=== PATIENT | female | born 1960 | race Caucasian/White ===

== ENCOUNTER → 2016-09-23 | Outpatient (CLI) | payer OTHER ==
--- NOTE | 2016-09-23 12:28 | MG ---
HISTORY: SCREENING Comparison: 09/12/2015, 04/29/2014 FINDINGS: Bilateral CC and MLO projections of the right and left breast were obtained. Scattered fibroglandul ar tissue is seen to be present. Stable asymmetric tissue is seen in the lateral left breast, hourly associate ior depth. No significant architectural distortion, mass or clustered microcalcifications can be obs erved to suggest malignancy. No skin thickening or nipple retraction is appreciated. No pathologi katelyn lymphadenopathy can be identified. IMPRESSION: NO RADIOGRAPHIC EVIDENCE OF MALIGNANCY. ACR CATEGORY I - NEGATIVE EXAM. FOLLOW-UP EXAM 1 YEAR. Diagnostic CAD was utilized and reviewed. * 0 (ZERO) - ASSESSMENT INCOMPLETE; ADDITIONAL IMAGING IS NEEDED. * 1/ (ONE) - NEGATIVE. * 2/II (TWO) - BENIGN FINDINGS. * 3/III (THREE) - PROBABLY BENIGN FINDING; SHORT INTERVAL FOLLOW-UP SUGGESTED. * 4/IV (FOUR) - SUSPICIOUS ABNORMALITY; BIOPSY SHOULD BE CONSIDERED. * 5/V - HIGHLY SUSPICIOUS OF MALIGNANCY; BIOPSY SHOULD BE PERFORMED. A NEGATIVE X-RAY REPORT SHOULD NOT DELAY BIOPSY IF A DOMINANT OR CLINICALLY SUSPICIOUS MASS IS PRESENT; 4 TO 8 PERCENT OF CANCERS ARE NOT IDENTIFIED BY X-RAY. A NEG ATIVE REPORT MAY REINFORCE THE CLINICAL IMPRESSION. ADENOSIS AND DENSE BREASTS MAY OBSCURE AN UNDER LYING NEOPLASM. Reported By:
== END ==
LOC: RAD 09:04
PROVIDERS: ATTEND Specialist
DX: Z12.31 Encounter for screening mammogram for malignant neoplasm of breast (principal)
CPT/HCPCS: 77067

== ENCOUNTER 2017-01-08 11:00 | Emergency (ER) | payer OTHER ==
[2017-01-08] MEDS ORDERED: PEPCID 20 MG IV PREMIX* 20 MG/50 ML BAG IV ONE (12:16)
[2017-01-08] MEDS ORDERED: ASPIRIN 81 MG CHEWTAB ONE (12:17)
[2017-01-08 12:53] VITALS: BMI 28.0
--- NOTE | 2017-01-08 13:52 | DR.CP ---
HPI - Time Seen Time seen: 15:10 <OXANA FOX - Last Filed: 01/08/17 15:33> - HPI Comment HPI Comment: SUDDEN ONSET OF INTERMITTENT SOB AT 08:30 AM TODAY RADIATING TO RT SHOULDER AND NOW LT SHOULDER. PAIN SHARP. SLIGHT SOB AND WEAKNESS ASSOCIATED WITH PAIN. NO PREVIOUS EPISODE. DENIES URI SYMTOMS OR REFLUX SYMTOMS. - Complaint Chief Complaint Doctor Comments: CHEST PAIN Chief Complaint:: chest pain starting approx 0830 this am radiating around chest to right arm and around to left. - Reviewed Nurses Notes Review: Yes - Source History Provided: Patient - Mode of Arrival Mode of Arrival: Ambulatory - Timing Onset of Chief Complaint: 01/08/17 Came on: Suddenly - Duration Duration: Intermittent Duration: Hours - Location Location of Chest Pain: Chest (SUBSTERNAL) Chest Pain Radiation Location: Left Arm, Right Arm - Context Onset: At rest Cardiac Risk Factors: None PE Risk Factors: None History of: None Prehospital Care: None - Quality Quality: Pressure like, Heavy - Severity Severity: Moderate - Modifying Factors Worsens: Nothing Impoves: Nothing - Associated Signs and Symptoms Associated Signs and Symptoms: Shortness of Breath <DAVID CHENEY - Last Filed: 01/09/17 04:18> PMH - PMH Past Medical History: No Past Surgical History: Yes Surgical History: Hysterectomy Past Surgical History Comment: neck surgery - Family History History of Family Medical Conditions: No - Social History Does patient currently use any type of tobacco product: No Have you used tobacco products in the last 12 months: No Type of Tobacco Use: None Does any household member use tobacco: No Alcohol Use: None Do you use any recreational Drugs:: No Lives With: Family Lives Where: Home - infectious screening In the last 2 months have you had wt loss of >10#?: NO Have you had fever, night sweats or hemotysis?: No Have you traveled outside the country in the last 6 months?: No Isolation: Standard <DAVID CHENEY - Last Filed: 01/09/17 04:18> ROS - Review of Systems Constitutional: No Symptoms Reported Eyes: No Symptoms Reported ENTM: No Symptoms Reported. negative: Ear Pain, Nose Discharge, Nose Congestion , Throat Pain Respiratoy: Short of Breath Cardiovascular: Chest Pain Gastrointestinal/Abdominal: No Symptoms Reported Genitourinary: No Symptoms Reported Musculoskeletal: No Symptoms Reported, Chest wall Integumentary: No Symptoms Reported Hematologic/Lymphatic: No Symptoms Reported Endocrine: No Symptoms Reported All Other Systems: Reviewed and Negative <SAM CHENEYVIKA - Last Filed: 01/09/17 04:18> PE - General Limitations: No Limitations General Appearance: Alert - Head Head Exam: Normal Inspection - Eyes Eye exam: Normal Appearance - ENT ENT Exam: Normal External Ear Exam - Chest Chest Inspection: Symmetric Chest Wall Rise - Respiratory Respiratory Exam: Normal Lung Sounds Bilat Respiratory Exam: Bilateral Clear to Auscultation - Cardiovascular Cardiovascular Exam: Regular Rate, Normal Rhythm, Normal Heart Sounds Pulse: Normal, Radial, Femoral Edema: Normal - Abdominal Exam Abdominal Exam: Normal Bowel Sounds, Soft. negative: Tenderness - Extremities Extremities Exam: Normal Inspection - Back Back Exam: Normal Inspection - Neurologic Neurological Exam: Alert, Oriented X3, CN II-XII Intact - Psychiatric Psychiatric Exam: Normal Affect, Normal Mood - Skin Skin Exam: Normal Color <SAM CHENEYVIKA - Last Filed: 01/09/17 04:18> - Vitals Vitals: Temperature 98.9 F Pulse Rate [Left] 71 Pulse Rate 87 Respiratory Rate 12 Blood Pressure [Left Arm] 126/70 Blood Pressure 167/94 O2 Sat by Pulse Oximetry 99 MDM - Additional Information Additional Information Obtained From: Family - Differential Diagnosis Differential Diagnosis: Cholelithasis, Costochondritis, Esophageal Reflux/Spasm , Gastritis, Myocardial Infarction, Pericarditis, Pancreatitis, Pneumonia, Pneumothorax, Pulmonary Embolus <SHRAVANDAVID - Last Filed: 01/09/17 04:18> Course - Treatment Treatment: SEE ORDERS. ASPIRIN AND PEPCID IN ED. - Consultation Consultation Comments: CARDIOLOGY CONSULT VIA TELE MED IN ED TODAY CONSULT NOTE REVIEWED.. DR. ZALDIVAR WILL ADMIT PATIENT. - Education/Counseling Education/Counseling: Patient, Family, Education Educated On: Treatment, Diagnosis, Needs for Follow Up <SHRAVANDAVID - Last Filed: 01/09/17 04:18> ROR - Labs Reviewed Result Diagrams: 01/08/17 11:45 01/08/17 11:45 <OXANA FOX - Last Filed: 01/08/17 15:33> - Labs Reviewed Laboratory Results Reviewed?: Yes Result Diagrams: 01/08/17 11:45 01/08/17 11:45 - XRAY XRAY Interpreted by: Radiologist XRAY Findings: REPORT DISCUSS NADINE PATIENT. - EKG Rhythm: NSR (EKG NOTED.) <DAVID CHENEY - Last Filed: 01/09/17 04:18> - Labs Reviewed Laboratory: WBC 10.4 X10^3/uL (3.6-10.0) H 01/08/17 11:45 RBC 4.53 X10^6/uL (3.5-5.4) 01/08/17 11:45 Hgb 14.9 g/dL (12.0-16.0) 01/08/17 11:45 Hct 42.0 % (36.0-47.0) 01/08/17 11:45 MCV 92.8 fL (80.0-100.0) 01/08/17 11:45 MCH 32.8 pg (27.0-34.0) 01/08/17 11:45 MCHC 35.4 g/dL (33.0-35.0) H 01/08/17 11:45 RDW 12.6 % (11.6-16.5) 01/08/17 11:45 Plt Count 288 X10^3/uL (150.0-450.0) 01/08/17 11:45 MPV 8.0 fL (7.4-11.0) 01/08/17 11:45 Neut % 67.2 % (42.0-75.0) 01/08/17 11:45 Lymph % 24.7 % (21.0-51.0) 01/08/17 11:45 [place] % 7.3 % (0.0-13.0) 01/08/17 11:45 Eos % 0.3 % (0.9-2.9) L 01/08/17 11:45 Baso % 0.5 % (0.2-1.0) 01/08/17 11:45 Neut # 7.0 x10^3/uL (2.2-4.8) H 01/08/17 11:45 Lymph # 2.6 X10^3/uL (1.3-2.9) 01/08/17 11:45 [place] # 0.8 x10^3/uL (0.3-0.8) 01/08/17 11:45 Eos # 0.0 x10^3/uL (0.0-0.2) 01/08/17 11:45 Baso # 0.1 X10^3/uL (0.0-0.1) 01/08/17 11:45 Absolute Nucleated RBC 0.0 /100WBC 01/08/17 11:45 INR Target Range - 01/08/17 11:45 INR 0.98 (0.8-1.3) 01/08/17 11:45 PTT 28.2 SECONDS (22.9-36.5) 01/08/17 11:45 PTT Comment - 01/08/17 11:45 D-Dimer 187 ng/mL (0-400) 01/08/17 11:45 Sodium 140 mmol/L (136-145) 01/08/17 11:45 Corrected Sodium TNP 01/08/17 11:45 Potassium 3.7 mmol/L (3.5-5.1) 01/08/17 11:45 Chloride 104 mmol/L (98-107) 01/08/17 11:45 Carbon Dioxide 28.5 mmol/L (21-32) 01/08/17 11:45 BUN 9 mg/dL (7-18) 01/08/17 11:45 Creatinine 0.80 mg/dL (0.55-1.02) 01/08/17 11:45 Est GFR (MDRD) Af Amer > 60 (>60) 01/08/17 11:45 Est GFR (MDRD) Non-Af > 60 (>60) 01/08/17 11:45 Glucose 104 mg/dL (65-99) H 01/08/17 11:45 Calcium 8.7 mg/dL (8.5-10.1) 01/08/17 11:45 Corrected Calcium TNP 01/08/17 11:45 Magnesium 1.9 mg/dL (1.7-2.9) 01/08/17 11:45 Total Bilirubin 0.30 mg/dL (0.2-1.0) 01/08/17 11:45 AST 18 Units/L (15-37) 01/08/17 11:45 ALT 23 Units/L (12-78) 01/08/17 11:45 Alkaline Phosphatase 50 Units/L (46-116) 01/08/17 11:45 Creatine Kinase 68 Units/L (26-192) 01/08/17 11:45 CK-MB (CK-2) 0.9 ng/mL (0-4.0) 01/08/17 11:45 CK/CKMB % Calc 1.3 % (<4) 01/08/17 11:45 Troponin I 0.00 ng/mL (0-1.5) 01/08/17 11:45 Total Protein 6.9 g/dL (6.4-8.2) 01/08/17 11:45 Albumin 3.5 g/dL (3.4-5.0) 01/08/17 11:45 Globulin 3.4 g/dL (2.5-4.5) 01/08/17 11:45 Albumin/Globulin Ratio 1.0 Ratio (1.1-2.1) L 01/08/17 11:45 Triglycerides 244 mg/dL (0-150) H 01/08/17 11:45 Cholesterol 188 mg/dL (0-200) 01/08/17 11:45 LDL Cholesterol, Calc 94 mg/dL (0-100) 01/08/17 11:45 HDL Cholesterol 45 mg/dL (40-60) 01/08/17 11:45 Cholesterol/HDL Ratio 4.2 (0.0-5.0) 01/08/17 11:45 H. pylori IgG Antibody Negative (NEGATIVE) 01/08/17 11:45 <OXANA FOX - Last Filed: 01/08/17 15:33> <DAVID CHENEY - Last Filed: 01/09/17 04:18> - Diagnosis Discharge Problem: Chest pain Qualifiers: Chest pain type: precordial pain Qualified Code(s): R07.2 - Precordial pain - Discharge Plan Disposition: 01 HOME, SELF-CARE Condition: Stable Telecardiology Consult - Consultation for Day of: Date: 01/08/17 - Chief Complaint Chief Complaint: Chest Pain - History of Present Illness History of Present Illness: 56 year old female with a family history of CAD otherwise no history of HTN, DM presents with an episode of sharp lower sternal aching sensation that lasted for several hours without any associated diaphoresis or SOB. ECG showed poor R wave progression. Initial cardiac enzymes were negative. Second set of cardiac enzymes are pending at this time. Patient denies any symptoms of PND, syncope, or palpitations. She has an administrative job. - Past Surgical History Surgical History: Hysterectomy - Family History Family Medical History: Coronary Artery Disease - Social History Does patient currently use any type of tobacco product: No Have you used tobacco products in the last 12 months: No Type of Tobacco Use: None Does any household member use tobacco: No Alcohol Use: None - Physical Exam Respiratory Rate: 12 O2 Sat by Pulse Oximetry: 99 - Medical Decision Making Reason for Consult: Chest Pain Labs reviewed: Yes Radiology Reviewed: No - Plan Plan: Second set of cardiac enzymes if negative patient is to undergo Treadmill [facility] ST tomorrow morning and follow up with power brake rebuilder. <OXANA FOX - Last Filed: 01/08/17 15:33> <DAVID CHENEY - Last Filed: 01/09/17 04:18> - Allergies Allergies/Adverse Reactions: Allergies Allergy/AdvReac Type Severity Reaction Status Date / Time codeine AdvReac Verified 01/08/17 12:52 - Medications Home Medications: Aspirin EC [ASPIRIN EC 81 MG *] 81 mg PO DAILY 01/08/17 [History Confirmed 01/08] Calcium Carbonate [Oyster Shell Calcium 500] 500 mg PO DAILY 01/08/17 [History Confirmed 01/08/17] Clindamycin HCl 300 mg PO Q6H 01/08/17 [History Confirmed 01/08/17] Cyanocobalamin (Vitamin B-12) [B-12] 500 mcg PO DAILY 01/08/17 [History Confirmed 01/08/17] Estradiol [Estrace] 2 mg PO DAILY 01/08/17 [History Confirmed 01/08/17]
[2017-01-08 14:17] LABS: ASPARTATE AMINO TRANSFERASE 18 Units/L (15-37); BLOOD UREA NITROGEN 9 mg/dL (7-18); CALCIUM 8.7 mg/dL (8.5-10.1); CARBON DIOXIDE 28.5 mmol/L (21-32); CHLORIDE 104 mmol/L (98-107); GLUCOSE 104 mg/dL (65-99); SODIUM 140 mmol/L (136-145); eGFR BLACK RACES > 60 (>60); eGFR NON BLACK RACES > 60 (>60)
[2017-01-08 14:18] LABS: ALANINE AMINOTRANSFERASE 23 Units/L (12-78); ALBUMIN 3.5 g/dL (3.4-5.0); ALKALINE PHOSPHATASE 50 Units/L (46-116); MAGNESIUM 1.9 mg/dL (1.7-2.9); TOTAL PROTEIN 6.9 g/dL (6.4-8.2)
[2017-01-08 14:29] LABS: CHOL/HDL RATIO 4.2 (0.0-5.0)
[2017-01-08 14:38] LABS: BASOPHILS # (AUTO) 0.1 X10^3/uL (0.0-0.1); BASOPHILS % (AUTO) 0.5 % (0.2-1.0); EOSINOPHILS % (AUTO) 0.3 % (0.9-2.9); HEMOGLOBIN 14.9 g/dL (12.0-16.0); LYMPHOCYTES # (AUTO) 2.6 X10^3/uL (1.3-2.9); LYMPHOCYTES % (AUTO) 24.7 % (21.0-51.0); MEAN CORPUSCULAR HEMOGLOBIN 32.8 pg (27.0-34.0); MEAN CORPUSCULAR HGB CONC 35.4 g/dL (33.0-35.0); MEAN CORPUSCULAR VOLUME 92.8 fL (80.0-100.0); MONOCYTES # (AUTO) 0.8 x10^3/uL (0.3-0.8); MONOCYTES % (AUTO) 7.3 % (0.0-13.0); NEUTROPHILS % (AUTO) 67.2 % (42.0-75.0); PLATELET COUNT 288 X10^3/uL (150.0-450.0); RED BLOOD COUNT 4.53 X10^6/uL (3.5-5.4); RED CELL DISTRIBUTION WIDTH 12.6 % (11.6-16.5); WHITE BLOOD COUNT 10.4 X10^3/uL (3.6-10.0)
[2017-01-08 14:56] LABS: CKMB % 1.3 % (<4); CREATINE KINASE MB 0.9 ng/mL (0-4.0)
--- NOTE | 2017-01-08 15:17 | RAD ---
HISTORY: 56-year-old female with chest pain. Study: Frontal view of the chest. Comparison: CT chest January 18, 2016 Findings: ACDF is present. The trachea is midline. The cardiac silhouette is unremarkable. Low lung volumes. The lungs are jess ar without focal consolidation, effusion or pneumothorax. Soft tissues are unremarkable. Osseous str uctures are unremarkable. IMPRESSION: 1. No acute cardiopulmonary disease. Reported By:
[2017-01-08] MEDS ORDERED: NITROSTAT SL PRN (15:25)
[2017-01-08] MEDS ORDERED: ZOFRAN INJ 4 MG VIAL IVP PRN (15:29)
[2017-01-08] MEDS ORDERED: MORPHINE SULFATE INJ 2 MG IVP PRN (15:29)
[2017-01-08] MEDS: PEPCID 20 MG IV PREMIX* 20 MG/50 ML BAG IV SCH ×2 (16:04→20:49)
[2017-01-08] MEDS ORDERED: NS 500 ML IV 500 ML IV ONE (20:46)
[2017-01-08] MEDS: CLEOCIN PO SCH (20:48)
[2017-01-09 01:41] LABS: CREATINE KINASE 50 Units/L (26-192); CREATINE KINASE MB < 1.0 ng/mL (0-4.0); TROPONIN I < 0.02 ng/mL (0-1.5)
[2017-01-09] MEDS: CLEOCIN PO SCH ×2 (04:15→08:24)
[2017-01-09 06:45] LABS: BASOPHILS # (AUTO) 0.1 X10^3/uL (0.0-0.1); BASOPHILS % (AUTO) 1.1 % (0.2-1.0); EOSINOPHILS # (AUTO) 0.1 x10^3/uL (0.0-0.2); EOSINOPHILS % (AUTO) 1.4 % (0.9-2.9); HEMATOCRIT 40.7 % (36.0-47.0); HEMOGLOBIN 14.2 g/dL (12.0-16.0); LYMPHOCYTES # (AUTO) 3.9 X10^3/uL (1.3-2.9); LYMPHOCYTES % (AUTO) 38.9 % (21.0-51.0); MEAN CORPUSCULAR HEMOGLOBIN 32.5 pg (27.0-34.0); MEAN CORPUSCULAR HGB CONC 34.8 g/dL (33.0-35.0); MEAN CORPUSCULAR VOLUME 93.5 fL (80.0-100.0); MEAN PLATELET VOLUME 7.8 fL (7.4-11.0); MONOCYTES # (AUTO) 0.7 x10^3/uL (0.3-0.8); MONOCYTES % (AUTO) 6.9 % (0.0-13.0); NEUTROPHILS # (AUTO) 5.1 x10^3/uL (2.2-4.8); NEUTROPHILS % (AUTO) 51.7 % (42.0-75.0); PLATELET COUNT 254 X10^3/uL (150.0-450.0); RED BLOOD COUNT 4.36 X10^6/uL (3.5-5.4); RED CELL DISTRIBUTION WIDTH 13.1 % (11.6-16.5); WHITE BLOOD COUNT 9.9 X10^3/uL (3.6-10.0)
[2017-01-09 07:17] LABS: ALANINE AMINOTRANSFERASE 22 Units/L (12-78); ALKALINE PHOSPHATASE 43 Units/L (46-116); ASPARTATE AMINO TRANSFERASE 18 Units/L (15-37); BLOOD UREA NITROGEN 9 mg/dL (7-18); CALCIUM 7.9 mg/dL (8.5-10.1); CHLORIDE 105 mmol/L (98-107); CHOL/HDL RATIO 3.9 (0.0-5.0); CHOLESTEROL 180 mg/dL (0-200); COR CA(FOR HYPOALB) 8.7 mg/dL (8.5-10.1); CREATININE 0.79 mg/dL (0.55-1.02); GLUCOSE 99 mg/dL (65-99); HDL CHOLESTEROL 46 mg/dL (40-60); SODIUM 141 mmol/L (136-145); TRIGLYCERIDES 239 mg/dL (0-150); eGFR BLACK RACES > 60 (>60); eGFR NON BLACK RACES > 60 (>60)
[2017-01-09 08:03] LABS: CKMB % 2.2 % (<4); CREATINE KINASE 46 Units/L (26-192); CREATINE KINASE MB < 1.0 ng/mL (0-4.0); TROPONIN I < 0.02 ng/mL (0-1.5)
[2017-01-09] MEDS: PEPCID 20 MG IV PREMIX* 20 MG/50 ML BAG IV SCH (08:19)
[2017-01-09] MEDS ORDERED: VITAMIN B-12 PO SCH (09:00)
[2017-01-09] MEDS ORDERED: ESTRACE PO SCH (09:00)
[2017-01-09] MEDS ORDERED: PATIENT'S HOME MEDICATION PO SCH (09:00)
[2017-01-09] MEDS ORDERED: ASPIRIN PO SCH (09:00)
[2017-01-09] MEDS ORDERED: TUMS PO SCH (09:00)
[2017-01-09] MEDS ORDERED: NS 100 ML IV 100 ML IV ONE (13:50)
--- NOTE | 2017-01-09 15:48 | CT ---
HISTORY: Chest pain radiating to back Study: CTA chest and abdomen with and without contrast Comparison: None Technique: Axial pre and post contrast images with coronal, sagittal, and 3 dimensional maximum inten sity projection images obtained in evaluated. Dose reduction procedures were use with MA/kv adjusted for body size. Findings: Vascular findings: Mild calcific atherosclerotic change is present in a nondilated thoracic aorta whi ch demonstrates no evidence for dissection. The abdominal aorta is of normal caliber demonstrating no evidence for aneurysmal dilatation or dissection. Those portions of the celiac axis SMA, bilateral r enal arteries, and KAY are within normal limits demonstrating no evidence for atherosclerotic change or stenosis. The common iliac arteries are normal as is the proximal most right internal iliac artery . Nonvascular findings: Examination of the mediastinum demonstrated no evidence for mediastinal masses, lymphadenopathy, or hilar lymphadenopathy. No pleural effusions are identified. No chest wall or axi llary abnormality is identified. The lungs are free of nodules, infiltrates, masses, areas of consoli dation, peribronchial thickening and bronchiectasis peer E the liver, spleen, adrenal glands, and mckenzie creas are within normal limits. No opaque stones are visible within the gallbladder. The kidneys are unobstructed and without stones or masses. No ureteral calculi are identified. No significant intrape ritoneal or retroperitoneal lymphadenopathy is identified. Those portions of the small and large rk l visualized were within normal limits. IMPRESSION: No significant vascular abnormality in the chest or abdomen No acute abnormality in the chest or abdomen. Reported By:
[2017-01-09 16:20] VITALS: BP 154/68
--- NOTE | 2017-01-15 11:36 | DR.CARTERS ---
Short Stay Summary - Short Stay Summary for: Short Stay Summary for Date of:: 01/09/17 - Admission Date Date of Admission: 01/08/17 - Discharge Date Discharge Date: 01/09/17 - Admission Diagnoses (1) Chest pain Status: Acute - Hospital Course Hospital Course: IS A 56 YEAR OLD PATIENT OF OURS WHO PRESENTED TO THE EMERGENCY ROOM WITH COMPLAINTS OF CHEST PAIN. PATIENT REPORED THAT PAIN BEGAN APPROXIMATELY 3 HOURS PRIOR TO PRESENTING TO THE ER. SHE DESCRIBED PAIN SHARP AND RADIATING TO THE RIGHT SHOULDER AND THEN TO LEFT SHOULDER. ASSOCIATED SYMPTOMS WERE SHORTNESS OF BREATH AND WEAKNESS. SHE DENIED URI SYMPTOMS OR ACID REFLUX. LABS, XRAY, AND EKGS WERE OBTAINED AND REPORTED THE FOLLOWING. CBC WNL EXCEPT WBC 10.4. CMP WNL EXCEPT GLUCOSE 104, A/G RATIO 1.0. TRIGLYCERIDES 244. CARDIAC ENZYMES WNL. EKG REPORTED SINUS RHYTHM WITH RATE OF 83. CHEST XRAY NEGATIVE. SHE WAS GIVEN PEPCID 20MG IV IN ER. WE ADMITTED PATIENT FOR FURTHER TREATMENT AND EVALUATION. SHE WAS STARTED ON TELEMETRY, MORPHINE 2MG IV Q4H PRN PAIN, ZOFRAN 4MG IVQ6H PRN PAIN, ASA 325MG PO DAILY, AND PEPCID 20MG IV Q12H. WE PLANNED TO RECHECK LABS AND CONTINUE TO FOLLOW UP WITH PATIENT. ON DAY 2 OF STAY, PATIENT IS ALERT AND ORIENTED, SITTING UP IN BED ON MORNING ROUNDS. SHE HAS NO COMPLAINTS. SHE DENIES CHEST PAIN OR SHORTNESS OF BREATH ON ROUNDS. VITALS THIS AM ARE 98.8-81-18-96%-138/62. CBC WNL. CMP WNL EXCPET CALCIUM 7.9, ALK PHOS 43, TOTAL PROTEIN 6.0, ALBUMIN 3.0, A/G RATIO 1.0. CARDIAC ENZYMES AND EKGs WNL. WE OBTAINED A CT OF THE ABD TO VIEW THE AORTA. IT REPORTED NO SIGNIFICANT VASCULAR ABNORMALITY IN THE CHEST OR ABDOMEN. WE PLANNED FOR DISCHARGE. INSTRUCTIONS FOR MEDICATIONS AND FOLLOW UP WERE DISCUSSED WITH PATIENT AND FAMILY. BOTH VERBALIZED UNDERSTANDING. PATIENT WAS DISCHARGED HOME WITH FAMILY IN STABLE CONDITION WITH NEW PRESCRIPTIONS FOR AMLODIPINE 5MG DAILY AND CRESTOR 5MG HS. SHE HAS INTRUCTIONS TO FOLLOW UP IN OUR OFFICE ON 01/16/17. - Discharge Medications Discharge Medications: Aspirin EC [ASPIRIN EC 81 MG *] 81 mg PO DAILY 01/08/17 [History] Calcium Carbonate [Calcium] 500 mg PO DAILY 01/08/17 [History] Clindamycin HCl 300 mg PO Q6H 01/08/17 [History] Cyanocobalamin (Vitamin B-12) [B-12] 500 mcg PO DAILY 01/08/17 [History] Estradiol [Estrace] 2 mg PO DAILY 01/08/17 [History] Amlodipine Besylate [NORVASC 5 MG *] 5 mg PO DAILY #30 tab 01/09/17 [Rx] Rosuvastatin Calcium [Crestor] 5 mg PO HS #30 tablet 01/09/17 [Rx] - Discharge Plan Disposition: HOME, SELF-CARE Condition: Stable Prescriptions: Amlodipine Besylate [NORVASC 5 MG *] 5 mg PO DAILY #30 tab Rosuvastatin Calcium [Crestor] 5 mg PO HS #30 tablet - Follow up/Referrals Follow up/Referrals: Jeremy Johnson [Primary Care Provider] - 01/16/17 3:40 pm - Instructions Instructions: Chest Pain Observation Additional Instructions: ACTIVITY TOLERATED. DIET TOLERATED. Forms: Patient Portal
== END 2017-01-09 16:45 | disposition home or self-care (01) ==
LOC: ER 11:05 → MED/SURG 15:32
PROVIDERS: ADMIT Internal Medicine; ATTEND Internal Medicine
DX: R07.2 Precordial pain (principal); R06.02 Shortness of breath; R53.1 Weakness
CPT/HCPCS: 36415; 71010; 74175; 80053; 80061; 82550; 82553; 83735; 84484; 85025; 85378; 85610; 85730; 86677; 93005; 94760; 96365; 96367; 96374; 99284; A4222; S0028; G0378

== ENCOUNTER → 2017-09-25 | Outpatient (CLI) | payer OTHER ==
--- NOTE | 2017-09-26 10:48 | MG ---
HISTORY: SCREENING Comparison: Previous mammogram dated 09/23/2016 FINDINGS: Bilateral CC and MLO projections of the right and left breast were obtained. Scattered fibroglandula r tissue is seen to be present. No significant architectural distortion, mass or clustered microcalc ifications can be observed to suggest malignancy. No skin thickening or nipple retraction is appreci ated. No pathological lymphadenopathy can be identified. Benign-appearing calcifications scattered throughout the right and left breasts are observed. IMPRESSION: NO RADIOGRAPHIC EVIDENCE OF MALIGNANCY. ACR CATEGORY: 2 - benign findings. FOLLOW-UP EXAM 1 YEAR. Diagnostic CAD was utilized and reviewed. * 0 (ZERO) - ASSESSMENT INCOMPLETE; ADDITIONAL IMAGING IS NEEDED. * 1/1 (ONE) - NEGATIVE. * 2/II (TWO) - BENIGN FINDINGS. * 3/III (THREE) - PROBABLY BENIGN FINDING; SHORT INTERVAL FOLLOW-UP SUGGESTED. * 4/IV (FOUR) - SUSPICIOUS ABNORMALITY; BIOPSY SHOULD BE CONSIDERED. * 5/V - HIGHLY SUSPICIOUS OF MALIGNANCY; BIOPSY SHOULD BE PERFORMED. A NEGATIVE X-RAY REPORT SHOULD NOT DELAY BIOPSY IF A DOMINANT OR CLINICALLY SUSPICIOUS MASS IS PRESENT; 4 TO 8 PERCENT OF CANCERS ARE NOT IDENTIFIED BY X-RAY. A NEGA TIVE REPORT MAY REINFORCE THE CLINICAL IMPRESSION. ADENOSIS AND DENSE BREASTS MAY OBSCURE AN UNDERLYING NEOPLASM. Reported By:
== END ==
LOC: RAD 09:12
PROVIDERS: ATTEND Specialist
DX: Z12.31 Encounter for screening mammogram for malignant neoplasm of breast (principal)
CPT/HCPCS: 77067

== ENCOUNTER 2022-01-04 08:50 | Inpatient (IN) ==
[2022-01-04] MEDS ORDERED: TORADOL 30 MG VIAL IVP ONE (08:59)
[2022-01-04] MEDS ORDERED: ZOFRAN INJ 4 MG VIAL IVP ONE ×2 (08:59→10:24)
[2022-01-04 09:04] VITALS: BMI 24.9
[2022-01-04] MEDS ORDERED: ZOFRAN INJ 4 MG VIAL ONE ×2 (09:04→10:28)
[2022-01-04] MEDS ORDERED: TORADOL 30 MG VIAL ONE (09:04)
--- NOTE | 2022-01-04 09:06 | ED.ABDFE ---
HPI Time Seen Time Seen by Provider: 01/04/22 09:02 Complaint Doctors Chief Complaint Comments: EPIGASTRIC PAIN WITH NAUSEA FOR 3-4 WEEKS. SYMPTOMS STARTS AFTER SHE EATS. PMH PMH Past Surgical History: Yes Surgical History: Hysterectomy Family History Family Medical History: Coronary Artery Disease Social History Do you use any recreational Drugs:: No ROS Review of Systems Constitutional: Other (EPIGASTRIC ABDOMINAL PAIN WITH NAUSEA OFF AND ON FOR 3-4 MONTHS.) Eyes: No Symptoms Reported ENTM: No Symptoms Reported Respiratoy: No Symptoms Reported Cardiovascular: No Symptoms Reported Gastrointestinal/Abdominal: Abdominal Pain and Nausea Genitourinary: No Symptoms Reported Neurological: No Symptoms Reported Musculoskeletal: Back Pain Integumentary: No Symptoms Reported Hematologic/Lymphatic: No Symptoms Reported Endocrine: No Symptoms Reported Psychiatric: No Symptoms Reported PE Vital Signs Vitals: Temperature 98.2 F Pulse Rate 78 Respiratory Rate 24 Blood Pressure [Right Arm] 140/75 Blood Pressure [Left Arm] 154/68 Blood Pressure 146/64 O2 Sat by Pulse Oximetry 98 General Limitations: No Limitations General Appearance: In Distress (MODERATE DISTRESS) Head Head Exam: Normal Inspection and Atraumatic Eyes Eye exam: Normal Appearance, PERRL and EOMI ENT ENT Exam: Normal Exam, Normal Oropharynx and Normal External Ear Exam Neck Neck Exam: Full ROM and Trachea Midline Chest Chest Inspection: Normal Inspection, Symmetric Chest Wall Rise and Other Respiratory Respiratory Exam: Normal Lung Sounds Bilat Respiratory Exam: Bilateral: Clear to Auscultation Cardiovascular Cardiovascular Exam: Regular Rate and Normal Rhythm Abdominal Exam Abdominal Exam: Normal Inspection, Normal Bowel Sounds, Soft and Tenderness (TENDER IN EPIGASTRIUM AND RUQ) Abdominal Tenderness: RUQ and Epigastrium Rectal Rectal Exam: Deferred Extremeties Extremities Exam: Normal Inspection and Full ROM External Exam: Female: Deferred : Speculum Exam (Female): Deferred : Bimanual Exam (female): Deferred Neurologic Neurological Exam: Alert, Oriented X3 and CN II-XII Intact Psychiatric Psychiatric Exam: Depressed Skin Skin Exam: Warm, Dry and Intact MDM Differential Diagnosis Differential Diagnosis- Considerations may include:: Cholelethiasis, Gastritus/PUD and Other (comments) (GERD) COURSE Treatment Treatment: PATIENT WAS GIVEN ZOFRAN 4MG IV AND INITIALLY TORADOL 30MG IV AND PORTONIC 40MG IV. WAS ALSO GIVEN DEMEROL 25MG IV AND AN ADDITIONA ZOFRAN 4MG IV FOR NAUSEA AND VOMITING. AMYLACE WAS 3.392 AND LIPASE WAS 52,898. ALT AND AST WERE ALSO ELEVATED. DR QUINTERO WAS CONTACTED AT 1150 AND HE STATED TO ADMIT THE PATIENT TO HOSPITAL FOR [facility] PANCREATITIS. KEEP NPO AND GIVE PAIN MEDICATIONS AND MEDICATIONS FOR NAUSEA. SPOKE TO PATIENT'S SON THAT IS A SURGEON IN [facility] AND HE AGREES TO THE ADMISION. THE PATIENT WAS TOLD BEFOREHAND THAT THAT WAS THE PLEN BUT SHE WANTED TO HAVE HER CONTION PRESENTED TO HER SON FIRST. THE ULTRASOUND SHOWED GLLSTONES WITHOUT BILIARY DILATATION. ROR Labs Reviewed Laboratory Results Reviewed?: Yes Result Diagrams: 01/04/22 09:09 01/04/22 09:09 Laboratory: WBC 15.3 X10^3/uL (3.6-10.0) H 01/04/22 09:09 RBC 4.98 X10^6/uL (3.5-5.4) 01/04/22 09:09 Hgb 15.9 g/dL (12.0-16.0) 01/04/22 09:09 Hct 45.7 % (36.0-47.0) 01/04/22 09:09 MCV 91.7 fL (80.0-100.0) 01/04/22 09:09 MCH 32.0 pg (27.0-34.0) 01/04/22 09:09 MCHC 34.9 g/dL (33.0-35.0) 01/04/22 09:09 RDW 12.9 % (11.6-16.5) 01/04/22 09:09 Plt Count 290 X10^3/uL (150.0-450.0) 01/04/22 09:09 MPV 7.8 fL (7.4-11.0) 01/04/22 09:09 Neut % (Auto) 80.2 % (42.0-75.0) H 01/04/22 09:09 Lymph % (Auto) 13.2 % (21.0-51.0) L 01/04/22 09:09 [place] % (Auto) 6.1 % (0.0-13.0) 01/04/22 09:09 Eos % (Auto) 0.2 % (0.9-2.9) L 01/04/22 09:09 Baso % (Auto) 0.3 % (0.2-1.0) 01/04/22 09:09 Neut # (Auto) 12.3 x10^3/uL (2.2-4.8) H 01/04/22 09:09 Lymph # (Auto) 2.0 X10^3/uL (1.3-2.9) 01/04/22 09:09 [place] # (Auto) 0.9 x10^3/uL (0.3-0.8) H 01/04/22 09:09 Eos # (Auto) 0.0 x10^3/uL (0.0-0.2) 01/04/22 09:09 Baso # (Auto) 0.0 X10^3/uL (0.0-0.1) 01/04/22 09:09 Absolute Nucleated RBC 0.0 /100WBC 01/04/22 09:09 Sodium 140 mmol/L (136-145) 01/04/22 09:09 Corrected Sodium 142 mmol/L (136-145) 01/04/22 09:09 Potassium 4.1 mmol/L (3.5-5.1) 01/04/22 09:09 Chloride 101 mmol/L (98-107) 01/04/22 09:09 Carbon Dioxide 29.0 mmol/L (21-32) 01/04/22 09:09 BUN 13 mg/dL (7-18) 01/04/22 09:09 Creatinine 0.72 mg/dL (0.55-1.02) 01/04/22 09:09 Est GFR (MDRD) Af Amer > 60 (>60) 01/04/22 09:09 Est GFR (MDRD) Non-Af > 60 (>60) 01/04/22 09:09 Glucose 170 mg/dL (65-99) H 01/04/22 09:09 Calcium 8.6 mg/dL (8.5-10.1) 01/04/22 09:09 Corrected Calcium TNP 01/04/22 09:09 Total Bilirubin 1.30 mg/dL (0.2-1.0) H 01/04/22 09:09 AST 449 Units/L (15-37) H 01/04/22 09:09 ALT 285 Units/L (12-78) H 01/04/22 09:09 Alkaline Phosphatase 100 Units/L (46-116) 01/04/22 09:09 Total Protein 7.2 g/dL (6.4-8.2) 01/04/22 09:09 Albumin 3.8 g/dL (3.4-5.0) 01/04/22 09:09 Globulin 3.4 g/dL (2.5-4.5) 01/04/22 09:09 Albumin/Globulin Ratio 1.1 Ratio (1.1-2.1) 01/04/22 09:09 Amylase 3392 Units/L (25-115) H 01/04/22 09:09 Lipase 72212 Units/L (73-393) H 01/04/22 09:09 SARS-CoV-2 (PCR) Negative (NEGATIVE) 01/04/22 11:18 Opioid Opioid Risk Tool Total: 0 Total Score Risk Category: Low Risk Copyright: [facility] predicting aberrant behaviors Discharge Plan Diagnosis Discharge Problem: Gall stone pancreatitis Discharge Plan Patient Disposition: ADMITTED INPATIENT Condition: Stable Prescriptions: No Action clindamycin HCl 300 MG capsule 300 mg PO Q6H aspirin [Aspir-Low] 81 MG tablet,delayed release (DR/EC) 81 mg PO DAILY cyanocobalamin (vitamin B-12) [Vitamin B-12] 500 MCG tablet 500 mcg PO DAILY calcium carbonate 500 MG tablet 500 mg PO DAILY estradiol [Estrace] 2 MG tablet 2 mg PO DAILY amlodipine 5 MG tablet 5 mg PO DAILY Qty: 30 3RF Rx Instructions: TAKE 1 TABLET BY MOUTH DAILY rosuvastatin [Crestor] 5 MG tablet 5 mg PO HS Qty: 30 3RF Rx Instructions: TAKE 1 TABLET BY MOUTH AT BEDTIME Health Concerns: Post Hospitalization: new medications and changes needed to prevent readmission or further decline. Pt educated and given instructions on all concerns. Plan of Treatment: Continue with present treatment and follow up plan. Pt is to keep follow up appointment as instructed and take medications as ordered. Orders to Discharge Patient Discharge Orders: Transfer (Routine); Ordered 01/04/22 Ordered By: Hermann Grigsby Follow ups/Referrals Follow ups/Referrals: Jeremy Johnson [Primary Care Provider] - 3 days Instructions Stand Alone Forms: Precautions for COVID19, [facility], Patient Portal, Social Distancing
[2022-01-04 09:18] LABS: BASOPHILS % (AUTO) 0.3 % (0.2-1.0); EOSINOPHILS % (AUTO) 0.2 % (0.9-2.9); HEMATOCRIT 45.7 % (36.0-47.0); HEMOGLOBIN 15.9 g/dL (12.0-16.0); LYMPHOCYTES % (AUTO) 13.2 % (21.0-51.0); MEAN CORPUSCULAR HGB CONC 34.9 g/dL (33.0-35.0); MEAN CORPUSCULAR VOLUME 91.7 fL (80.0-100.0); MEAN PLATELET VOLUME 7.8 fL (7.4-11.0); MONOCYTES # (AUTO) 0.9 x10^3/uL (0.3-0.8); MONOCYTES % (AUTO) 6.1 % (0.0-13.0); NEUTROPHILS # (AUTO) 12.3 x10^3/uL (2.2-4.8); NEUTROPHILS % (AUTO) 80.2 % (42.0-75.0); RED BLOOD COUNT 4.98 X10^6/uL (3.5-5.4); RED CELL DISTRIBUTION WIDTH 12.9 % (11.6-16.5); WHITE BLOOD COUNT 15.3 X10^3/uL (3.6-10.0)
[2022-01-04] MEDS ORDERED: PROTONIX INJ 40 MG VIAL IVP ONE (09:28)
[2022-01-04] MEDS ORDERED: PROTONIX INJ 40 MG VIAL ONE (09:28)
[2022-01-04 09:31] LABS: ALANINE AMINOTRANSFERASE 285 Units/L (12-78); ALBUMIN 3.8 g/dL (3.4-5.0); ALKALINE PHOSPHATASE 100 Units/L (46-116); ASPARTATE AMINO TRANSFERASE 449 Units/L (15-37); BLOOD UREA NITROGEN 13 mg/dL (7-18); CALCIUM 8.6 mg/dL (8.5-10.1); CHLORIDE 101 mmol/L (98-107); COR NA(FOR HYPERGLY) 142 mmol/L (136-145); CREATININE 0.72 mg/dL (0.55-1.02); SODIUM 140 mmol/L (136-145); TOTAL PROTEIN 7.2 g/dL (6.4-8.2); eGFR NON BLACK RACES > 60 (>60)
[2022-01-04 10:04] LABS: AMYLASE 3392 Units/L (25-115); LIPASE 52898 Units/L (73-393)
[2022-01-04] MEDS ORDERED: DEMEROL INJ IVP ONE (10:19)
[2022-01-04] MEDS ORDERED: DEMEROL INJ ONE (10:20)
--- NOTE | 2022-01-04 10:59 | US ---
HISTORYAbd painSTUDYGALL BLADDERCOMPARISONNoneTECHNIQUEMultiple regalado scale and color flow Doppler images of the right upper quadrant were obtained.FINDINGSThe liver is normal in size and normal in echotexture. No focal identifiable hepatic mass or intrahepatic biliary ductal dilatation.Stones and sludge in the gallbladder.. No gallbladder wall thickening or pericholecystic fluid. The sonographic Guillen's sign is reported as negative by the community health nursing director. The common bile duct is unremarkable measuring 0.4 cm.Limited visualized portions of the pancreas and IVC are unremarkable.The right kidney appears normal in size measuring up to 11.8 cm. No stones or hydronephrosis. Right renal cyst measuring up to 1.9 cm.IMPRESSIONCholelithiasis without evidence of acute cholecystitis.Electronically signed by: CARLO LI (Jan 04, 2022 10:58:29)
[2022-01-04] MEDS ORDERED: DEMEROL INJ IVP PRN (12:25)
[2022-01-04] MEDS ORDERED: NS 1,000 ML IV 1,000 ML ONE (12:47)
[2022-01-04] MEDS ORDERED: NS 1,000 ML IV 1,000 ML IV SCH (13:00)
[2022-01-04] MEDS: ZOFRAN INJ 4 MG VIAL IVP PRN ×2 (14:02→21:59)
[2022-01-04] MEDS: DILAUDID INJ IVP PRN ×3 (14:04→22:21)
[2022-01-04] MEDS: ZOSYN VIAL 3.375 GRAMS 3.375 G in NS 100 ML IV 100 ML IV SCH ×2 (14:09→21:25)
[2022-01-04] MEDS: D5 1/2 NS 1,000 ML 1,000 ML IV SCH ×2 (14:13→21:59)
[2022-01-05] MEDS: DILAUDID INJ IVP PRN ×3 (03:47→19:56)
[2022-01-05] MEDS: D5 1/2 NS 1,000 ML 1,000 ML IV SCH ×4 (05:41→22:04)
[2022-01-05] MEDS: ZOSYN VIAL 3.375 GRAMS 3.375 G in NS 100 ML IV 100 ML IV SCH ×3 (05:52→22:04)
[2022-01-05] MEDS: ZOFRAN INJ 4 MG VIAL IVP PRN ×3 (05:52→19:56)
[2022-01-05 06:44] LABS: BASOPHILS % (AUTO) 0.2 % (0.2-1.0); EOSINOPHILS % (AUTO) 0.2 % (0.9-2.9); HEMATOCRIT 43.5 % (36.0-47.0); LYMPHOCYTES # (AUTO) 1.7 X10^3/uL (1.3-2.9); LYMPHOCYTES % (AUTO) 10.1 % (21.0-51.0); MEAN CORPUSCULAR HEMOGLOBIN 31.6 pg (27.0-34.0); MEAN CORPUSCULAR HGB CONC 34.4 g/dL (33.0-35.0); MEAN CORPUSCULAR VOLUME 91.9 fL (80.0-100.0); MEAN PLATELET VOLUME 8.3 fL (7.4-11.0); MONOCYTES # (AUTO) 0.9 x10^3/uL (0.3-0.8); MONOCYTES % (AUTO) 5.6 % (0.0-13.0); NEUTROPHILS # (AUTO) 14.2 x10^3/uL (2.2-4.8); NEUTROPHILS % (AUTO) 83.9 % (42.0-75.0); RED BLOOD COUNT 4.73 X10^6/uL (3.5-5.4); RED CELL DISTRIBUTION WIDTH 12.7 % (11.6-16.5); WHITE BLOOD COUNT 16.9 X10^3/uL (3.6-10.0)
[2022-01-05 06:55] LABS: ALANINE AMINOTRANSFERASE 327 Units/L (12-78); ALBUMIN 3.7 g/dL (3.4-5.0); ALKALINE PHOSPHATASE 115 Units/L (46-116); ASPARTATE AMINO TRANSFERASE 208 Units/L (15-37); BLOOD UREA NITROGEN 10 mg/dL (7-18); CALCIUM 8.1 mg/dL (8.5-10.1); CARBON DIOXIDE 33.5 mmol/L (21-32); CHLORIDE 103 mmol/L (98-107); CREATININE 0.65 mg/dL (0.55-1.02); SODIUM 143 mmol/L (136-145); TOTAL PROTEIN 7.1 g/dL (6.4-8.2); eGFR NON BLACK RACES > 60 (>60)
[2022-01-05 07:15] LABS: AMYLASE 688 Units/L (25-115); LIPASE 3505 Units/L (73-393)
[2022-01-05] MEDS: LOVENOX INJ 40 MG SYR SC SCH (08:45)
[2022-01-05] MEDS: PROTONIX INJ 40 MG VIAL IVP SCH (08:46)
[2022-01-05] MEDS ORDERED: K-DUR TAB 20 MEQ PO PRN (10:22)
[2022-01-05] MEDS ORDERED: POTASSIUM CHL 60 MEQ/NS 0.45% 500 ML IV PRN (10:22)
[2022-01-05] MEDS ORDERED: MAGNESIUM SULFATE 1 GRAM/100 mL PREMIX 1 G/100 ML BAG IV PRN (10:22)
[2022-01-05] MEDS ORDERED: POTASSIUM CHLORIDE LIQ 20 MEQ UDC PO PRN (10:22)
[2022-01-05] MEDS ORDERED: MICRO K EXTEN CAP 10 MEQ PO PRN (10:22)
[2022-01-05] MEDS ORDERED: POTASSIUM CHL 40 MEQ/NS 0.45% 500 ML IV PRN (10:22)
[2022-01-05] MEDS ORDERED: KLOR-CON PO PRN (10:22)
--- NOTE | 2022-01-05 11:21 | DR.PROGNOT ---
Hospital Progress Notes - Progress Note for Day of: Progress Note Date: 01/05/22 - Chief Complaint Chief Complaint: less abdominal pain today . no nausea , no vomiting .. Amylase 688 .. Lipase 3505 .. Bilirub 0.9 . Alk Phos 327 . afebrile . - Past Medical Family Social History Past Med/Fam/Surg Hx: No changes since H&P Allergies: Allergies codeine Adverse Reaction (Verified 01/04/22 13:33) - Review Of Systems ROS: No change since H&P - Vital Signs Vital Signs: Temperature 97.5 F Pulse Rate [Left Brachial] 70 Pulse Rate 78 Respiratory Rate 18 Blood Pressure [Right Arm] 140/75 Blood Pressure [Left Arm] 129/62 Blood Pressure 146/64 O2 Sat by Pulse Oximetry 100 - Physical Exam Oriented: Normal Eyes: Normal Ear: Normal Nose: Normal Respiratory: Normal Cardiovascular: Normal : Normal GI:Auscultation: Normal GI: Tenderness: Diffuse (soft, full abdomen with moderate epigastric and upper abdominal tendeness .. BS hypoactive ) Speech Pattern: Clear, Appropriate - Laboratory and Diagnostics Result Diagrams: 01/05/22 05:54 01/05/22 05:54 Labs: Laboratory WBC 16.9 X10^3/uL (3.6-10.0) H 01/05/22 05:54 RBC 4.73 X10^6/uL (3.5-5.4) 01/05/22 05:54 Hgb 15.0 g/dL (12.0-16.0) 01/05/22 05:54 Hct 43.5 % (36.0-47.0) 01/05/22 05:54 MCV 91.9 fL (80.0-100.0) 01/05/22 05:54 MCH 31.6 pg (27.0-34.0) 01/05/22 05:54 MCHC 34.4 g/dL (33.0-35.0) 01/05/22 05:54 RDW 12.7 % (11.6-16.5) 01/05/22 05:54 Plt Count 298 X10^3/uL (150.0-450.0) 01/05/22 05:54 MPV 8.3 fL (7.4-11.0) 01/05/22 05:54 Neut % (Auto) 83.9 % (42.0-75.0) H 01/05/22 05:54 Lymph % (Auto) 10.1 % (21.0-51.0) L 01/05/22 05:54 [place] % (Auto) 5.6 % (0.0-13.0) 01/05/22 05:54 Eos % (Auto) 0.2 % (0.9-2.9) L 01/05/22 05:54 Baso % (Auto) 0.2 % (0.2-1.0) 01/05/22 05:54 Neut # (Auto) 14.2 x10^3/uL (2.2-4.8) H 01/05/22 05:54 Lymph # (Auto) 1.7 X10^3/uL (1.3-2.9) 01/05/22 05:54 [place] # (Auto) 0.9 x10^3/uL (0.3-0.8) H 01/05/22 05:54 Eos # (Auto) 0.0 x10^3/uL (0.0-0.2) 01/05/22 05:54 Baso # (Auto) 0.0 X10^3/uL (0.0-0.1) 01/05/22 05:54 Absolute Nucleated RBC 0.0 /100WBC 01/05/22 05:54 Sodium 143 mmol/L (136-145) 01/05/22 05:54 Corrected Sodium TNP 01/05/22 05:54 Potassium 3.7 mmol/L (3.5-5.1) 01/05/22 05:54 Chloride 103 mmol/L (98-107) 01/05/22 05:54 Carbon Dioxide 33.5 mmol/L (21-32) H 01/05/22 05:54 BUN 10 mg/dL (7-18) 01/05/22 05:54 Creatinine 0.65 mg/dL (0.55-1.02) 01/05/22 05:54 Est GFR (MDRD) Af Amer > 60 (>60) 01/05/22 05:54 Est GFR (MDRD) Non-Af > 60 (>60) 01/05/22 05:54 Glucose 109 mg/dL (65-99) H 01/05/22 05:54 Calcium 8.1 mg/dL (8.5-10.1) L 01/05/22 05:54 Corrected Calcium TNP 01/05/22 05:54 Magnesium 2.3 mg/dL (1.7-2.9) 01/05/22 05:54 Total Bilirubin 0.90 mg/dL (0.2-1.0) 01/05/22 05:54 AST 208 Units/L (15-37) H 01/05/22 05:54 ALT 327 Units/L (12-78) H 01/05/22 05:54 Alkaline Phosphatase 115 Units/L (46-116) 01/05/22 05:54 Total Protein 7.1 g/dL (6.4-8.2) 01/05/22 05:54 Albumin 3.7 g/dL (3.4-5.0) 01/05/22 05:54 Globulin 3.4 g/dL (2.5-4.5) 01/05/22 05:54 Albumin/Globulin Ratio 1.1 Ratio (1.1-2.1) 01/05/22 05:54 Amylase 688 Units/L (25-115) H 01/05/22 05:54 Lipase 3505 Units/L (73-393) H 01/05/22 05:54 SARS-CoV-2 (PCR) Negative (NEGATIVE) 01/04/22 11:18 - Assessment and Plan 4: improving gallstone pancreatitis . gall stones . on clear liquid now . maybe lap [place] early next week .. - Problem Patient Problems: Patient Problems Gall stone pancreatitis (Acute) K85.10
[2022-01-05] MEDS: K-RIDER 10 MEQ/NS 100 ML 10 MEQ/100 ML BAG IV PRN ×2 (16:18→19:55)
[2022-01-05] MEDS ORDERED: NS 100 ML IV 100 ML ONE (19:48)
[2022-01-06] MEDS: ZOFRAN INJ 4 MG VIAL IVP PRN ×2 (03:21→15:15)
[2022-01-06] MEDS: DILAUDID INJ IVP PRN ×2 (03:21→15:15)
[2022-01-06] MEDS: D5 1/2 NS 1,000 ML 1,000 ML IV SCH ×3 (05:29→20:58)
[2022-01-06] MEDS: ZOSYN VIAL 3.375 GRAMS 3.375 G in NS 100 ML IV 100 ML IV SCH ×3 (05:29→21:00)
[2022-01-06 06:25] LABS: BASOPHILS % (AUTO) 0.3 % (0.2-1.0); EOSINOPHILS # (AUTO) 0.1 x10^3/uL (0.0-0.2); EOSINOPHILS % (AUTO) 0.5 % (0.9-2.9); HEMATOCRIT 38.6 % (36.0-47.0); HEMOGLOBIN 13.3 g/dL (12.0-16.0); LYMPHOCYTES # (AUTO) 2.7 X10^3/uL (1.3-2.9); LYMPHOCYTES % (AUTO) 20.2 % (21.0-51.0); MEAN CORPUSCULAR HEMOGLOBIN 31.6 pg (27.0-34.0); MEAN CORPUSCULAR HGB CONC 34.4 g/dL (33.0-35.0); MONOCYTES % (AUTO) 7.5 % (0.0-13.0); NEUTROPHILS # (AUTO) 9.5 x10^3/uL (2.2-4.8); NEUTROPHILS % (AUTO) 71.5 % (42.0-75.0); RED CELL DISTRIBUTION WIDTH 12.5 % (11.6-16.5); WHITE BLOOD COUNT 13.3 X10^3/uL (3.6-10.0)
[2022-01-06 06:34] LABS: ALANINE AMINOTRANSFERASE 156 Units/L (12-78); ALBUMIN 2.9 g/dL (3.4-5.0); ALKALINE PHOSPHATASE 90 Units/L (46-116); AMYLASE 183 Units/L (25-115); ASPARTATE AMINO TRANSFERASE 54 Units/L (15-37); BLOOD UREA NITROGEN 5 mg/dL (7-18); CALCIUM 7.3 mg/dL (8.5-10.1); CARBON DIOXIDE 31.8 mmol/L (21-32); CHLORIDE 103 mmol/L (98-107); COR CA(FOR HYPOALB) 8.2 mg/dL (8.5-10.1); COR NA(FOR HYPERGLY) 140 mmol/L (136-145); LIPASE 527 Units/L (73-393); SODIUM 140 mmol/L (136-145); TOTAL PROTEIN 5.7 g/dL (6.4-8.2); eGFR NON BLACK RACES > 60 (>60)
[2022-01-06] MEDS: LOVENOX INJ 40 MG SYR SC SCH (09:33)
[2022-01-06] MEDS: PROTONIX INJ 40 MG VIAL IVP SCH (09:34)
[2022-01-06] MEDS ORDERED: MOTRIN TAB 600 MG PO PRN (09:42)
--- NOTE | 2022-01-06 10:22 | DR.PROGNOT ---
Hospital Progress Notes - Progress Note for Day of: Progress Note Date: 01/06/22 - Chief Complaint Chief Complaint: less abdominal pain today . no nausea , no vomiting .. Amylase 183..Lipase 527. Bilirub 0.9 . Alk Phos 90. WBC 13.3. afebrile . - Past Medical Family Social History Past Med/Fam/Surg Hx: No changes since H&P Allergies: Allergies codeine Adverse Reaction (Verified 01/04/22 13:33) - Review Of Systems ROS: No change since H&P - Vital Signs Vital Signs: Temperature 97.6 F Pulse Rate [Left Brachial] 75 Pulse Rate 78 Respiratory Rate 18 Blood Pressure [Right Arm] 122/58 Blood Pressure [Left Arm] 133/61 Blood Pressure 146/64 O2 Sat by Pulse Oximetry 99 - Physical Exam Oriented: Normal Eyes: Normal Ear: Normal Nose: Normal Respiratory: Normal Cardiovascular: Normal : Normal GI:Auscultation: Normal GI: Tenderness: Diffuse (soft, full abdomen with moderate epigastric and upper abdominal tendeness .. BS hypoactive ) Speech Pattern: Clear, Appropriate - Laboratory and Diagnostics Result Diagrams: 01/06/22 05:57 01/06/22 05:57 Labs: Laboratory WBC 13.3 X10^3/uL (3.6-10.0) H 01/06/22 05:57 RBC 4.20 X10^6/uL (3.5-5.4) 01/06/22 05:57 Hgb 13.3 g/dL (12.0-16.0) 01/06/22 05:57 Hct 38.6 % (36.0-47.0) 01/06/22 05:57 MCV 92.0 fL (80.0-100.0) 01/06/22 05:57 MCH 31.6 pg (27.0-34.0) 01/06/22 05:57 MCHC 34.4 g/dL (33.0-35.0) 01/06/22 05:57 RDW 12.5 % (11.6-16.5) 01/06/22 05:57 Plt Count 255 X10^3/uL (150.0-450.0) 01/06/22 05:57 MPV 8.0 fL (7.4-11.0) 01/06/22 05:57 Neut % (Auto) 71.5 % (42.0-75.0) 01/06/22 05:57 Lymph % (Auto) 20.2 % (21.0-51.0) L 01/06/22 05:57 [place] % (Auto) 7.5 % (0.0-13.0) 01/06/22 05:57 Eos % (Auto) 0.5 % (0.9-2.9) L 01/06/22 05:57 Baso % (Auto) 0.3 % (0.2-1.0) 01/06/22 05:57 Neut # (Auto) 9.5 x10^3/uL (2.2-4.8) H 01/06/22 05:57 Lymph # (Auto) 2.7 X10^3/uL (1.3-2.9) 01/06/22 05:57 [place] # (Auto) 1.0 x10^3/uL (0.3-0.8) H 01/06/22 05:57 Eos # (Auto) 0.1 x10^3/uL (0.0-0.2) 01/06/22 05:57 Baso # (Auto) 0.0 X10^3/uL (0.0-0.1) 01/06/22 05:57 Absolute Nucleated RBC 0.0 /100WBC 01/06/22 05:57 Sodium 140 mmol/L (136-145) 01/06/22 05:57 Corrected Sodium 140 mmol/L (136-145) 01/06/22 05:57 Potassium 3.2 mmol/L (3.5-5.1) L 01/06/22 05:57 Chloride 103 mmol/L (98-107) 01/06/22 05:57 Carbon Dioxide 31.8 mmol/L (21-32) 01/06/22 05:57 BUN 5 mg/dL (7-18) L 01/06/22 05:57 Creatinine 0.60 mg/dL (0.55-1.02) 01/06/22 05:57 Est GFR (MDRD) Af Amer > 60 (>60) 01/06/22 05:57 Est GFR (MDRD) Non-Af > 60 (>60) 01/06/22 05:57 Glucose 116 mg/dL (65-99) H 01/06/22 05:57 Calcium 7.3 mg/dL (8.5-10.1) L 01/06/22 05:57 Corrected Calcium 8.2 mg/dL (8.5-10.1) L 01/06/22 05:57 Magnesium 2.0 mg/dL (1.7-2.9) 01/06/22 05:57 Total Bilirubin 0.50 mg/dL (0.2-1.0) 01/06/22 05:57 AST 54 Units/L (15-37) H 01/06/22 05:57 ALT 156 Units/L (12-78) H 01/06/22 05:57 Alkaline Phosphatase 90 Units/L (46-116) 01/06/22 05:57 Total Protein 5.7 g/dL (6.4-8.2) L 01/06/22 05:57 Albumin 2.9 g/dL (3.4-5.0) L 01/06/22 05:57 Globulin 2.8 g/dL (2.5-4.5) 01/06/22 05:57 Albumin/Globulin Ratio 1.0 Ratio (1.1-2.1) L 01/06/22 05:57 Amylase 183 Units/L (25-115) H 01/06/22 05:57 Lipase 527 Units/L (73-393) H 01/06/22 05:57 SARS-CoV-2 (PCR) Negative (NEGATIVE) 01/04/22 11:18 - Assessment and Plan 4: subsiding acute gallstone pancreatitis . cholelithiasis . on full liquid now . for lap [place] in am .. - Problem Patient Problems: Patient Problems Gall stone pancreatitis (Acute) K85.10
[2022-01-07] MEDS: D5 1/2 NS 1,000 ML 1,000 ML IV SCH ×3 (03:39→22:00)
[2022-01-07] MEDS: ZOSYN VIAL 3.375 GRAMS 3.375 G in NS 100 ML IV 100 ML IV SCH ×3 (05:14→21:02)
[2022-01-07 05:51] LABS: BASOPHILS % (AUTO) 0.4 % (0.2-1.0); EOSINOPHILS # (AUTO) 0.1 x10^3/uL (0.0-0.2); EOSINOPHILS % (AUTO) 0.9 % (0.9-2.9); HEMATOCRIT 38.5 % (36.0-47.0); HEMOGLOBIN 13.5 g/dL (12.0-16.0); LYMPHOCYTES # (AUTO) 3.1 X10^3/uL (1.3-2.9); LYMPHOCYTES % (AUTO) 27.8 % (21.0-51.0); MEAN CORPUSCULAR HEMOGLOBIN 32.4 pg (27.0-34.0); MEAN CORPUSCULAR HGB CONC 35.1 g/dL (33.0-35.0); MEAN CORPUSCULAR VOLUME 92.4 fL (80.0-100.0); MEAN PLATELET VOLUME 8.1 fL (7.4-11.0); MONOCYTES # (AUTO) 1.1 x10^3/uL (0.3-0.8); MONOCYTES % (AUTO) 9.4 % (0.0-13.0); NEUTROPHILS # (AUTO) 6.9 x10^3/uL (2.2-4.8); NEUTROPHILS % (AUTO) 61.5 % (42.0-75.0); RED BLOOD COUNT 4.17 X10^6/uL (3.5-5.4); RED CELL DISTRIBUTION WIDTH 12.4 % (11.6-16.5); WHITE BLOOD COUNT 11.2 X10^3/uL (3.6-10.0)
[2022-01-07 06:04] LABS: ALANINE AMINOTRANSFERASE 97 Units/L (12-78); ALBUMIN 2.8 g/dL (3.4-5.0); ALKALINE PHOSPHATASE 87 Units/L (46-116); ASPARTATE AMINO TRANSFERASE 25 Units/L (15-37); BLOOD UREA NITROGEN 4 mg/dL (7-18); CALCIUM 7.6 mg/dL (8.5-10.1); CARBON DIOXIDE 29.5 mmol/L (21-32); CHLORIDE 103 mmol/L (98-107); COR CA(FOR HYPOALB) 8.6 mg/dL (8.5-10.1); COR NA(FOR HYPERGLY) 140 mmol/L (136-145); CREATININE 0.58 mg/dL (0.55-1.02); SODIUM 140 mmol/L (136-145); TOTAL PROTEIN 5.8 g/dL (6.4-8.2); eGFR NON BLACK RACES > 60 (>60)
[2022-01-07] MEDS: LOVENOX INJ 40 MG SYR SC SCH (08:04)
[2022-01-07] MEDS ORDERED: LR 1,000 ML IV 1,000 ML IV ONE (08:25)
[2022-01-07] MEDS ORDERED: BRIDION ONE (08:53)
[2022-01-07] MEDS ORDERED: QUELICIN (OR ANECTINE) ONE (08:53)
[2022-01-07] MEDS ORDERED: XYLOCAINE 2 % (PLAIN) ONE (08:53)
[2022-01-07] MEDS ORDERED: ZOFRAN INJ 4 MG VIAL ONE (08:53)
[2022-01-07] MEDS ORDERED: FENTANYL VIAL INJ 250 mcg ONE (08:53)
[2022-01-07] MEDS ORDERED: ZEMURON 100 MG VIAL ONE (08:53)
[2022-01-07] MEDS ORDERED: VERSED ONE (08:53)
[2022-01-07] MEDS ORDERED: DIPRIVAN VIAL 20 ML ONE (08:53)
[2022-01-07] MEDS ORDERED: BACTROBAN TOPICAL OINT ONE (09:08)
[2022-01-07] MEDS ORDERED: NS 1,000 ML IV 1,000 ML ONE (09:08)
[2022-01-07] MEDS ORDERED: SUPRANE ONE (09:23)
[2022-01-07] MEDS ORDERED: EPHEDRINE SULFATE INJ ONE (09:42)
[2022-01-07] MEDS ORDERED: DILAUDID INJ IVP PRN ×2 (10:32→10:55)
[2022-01-07] MEDS ORDERED: BENADRYL INJ 50 MG VIAL IVP PRN (10:32)
[2022-01-07] MEDS ORDERED: REGLAN INJ 10 MG VIAL IVP PRN (10:32)
[2022-01-07] MEDS ORDERED: BARHEMSYS INJ IVP PRN (10:32)
[2022-01-07] MEDS ORDERED: PHENERGAN INJ 25 MG IM PRN (10:32)
[2022-01-07] MEDS ORDERED: ZOFRAN INJ 4 MG VIAL IVP PRN (10:32)
[2022-01-07] MEDS ORDERED: BARHEMSYS INJ ONE (10:46)
[2022-01-07] MEDS: PROTONIX INJ 40 MG VIAL IVP SCH (11:22)
[2022-01-07] MEDS: DILAUDID INJ IVP PRN ×2 (11:36→15:15)
[2022-01-07] MEDS: ZOFRAN INJ 4 MG VIAL IVP PRN (11:37)
--- NOTE | 2022-01-07 13:03 | PCM.PROG ---
Progress Note - Progress Note for Day of Date of Exam: 01/06/22 - Subjective Subjective: IS A 61 YEAR OLD PATIENT OF OURS. SHE WAS ADMITTED INPATIENT STATUS ON 01/04/22 DUE TO EPIGASTRIC PAIN, RUQ PAIN, AND NAUSEA FOR 3-4 WEEKS PRIOR TO ARRIVAL. PAIN WAS WORSE AFTER EATING. GALL BLADDER ULTRASOUND REVEALED CHOLELITHIASIS WITHOUT EVIDENCE OF ACUTE CHOLECYSTITIS. TODAY, SHE IS ALERT AND ORIENTED, LYING IN BED ON MORNING ROUNDS. SHE REPORTS SLIGHT IMPROVEMENT IN SYMTPOMS SINCE ADMISSION. SHE DENIES ANY NAUSEA OR VOMITING. ON EXAMINATION, HEART IS REGULAR IN RATE AND RHYTHM. BILATEARL LUNGS CLEAR TO AUSCULTATION. ABDOMEN IS ROUND, SOFT, NON-TENDER WITH HYPOACTIVE BOWEL SOUNDS NOTED IN ALL QUADRANTS. HER VITALS THIS MORNING ARE: 97.6-75-18-99%-122/58. LABS WERE OBTAINED. WBC 13.3, RBC 4.20, HGB 13.3, HCT 38.6, PLT COUNT 255, SODIUM 140, POTASSIUM 3.2, BUN 5, CREATININE 0.60, GLUCOSE 116, CALCIUM 7.3, AST 54, ALT 156, TOTAL PROTEIN 5.7, ALBUMIN 2.9, AMYLASE 183, LIPASE 527. SHE IS CURRENTLY RECEIVING D51/2NS AT 100 ML/HR, LOVENOX 40MG SC DAILY, DILAUDID 2MG IV Q4H PRN, MOTRIN 600MG PO TID PRN, ZOFRAN 4MG IV Q4H PRN, PROTONIX 40MG IV DAILY, ZOSYN 3.375G IV TID, AND THE POTASSIUM PROTOCOL. PLANS TO TAKE HER TO THE OR TOMORROW FOR DEBRIDEMENT. WE ARE IN AGREEMENT WITH PLANS. OTHERWISE, WE WILL FOLLOW-UP WITH AM LABS AND CONTINUE TO MONITOR. TIME SPENT ON CLINICAL ASSESSMENT, REVIWING LABS AND IMAGING, DECISION MAKING, AND DOCUMENTATION GREATE R THAN 45 MINUTES. - Past Medical Family Social History Past Med/Fam/Surg Hx: No changes since H&P Allergies: Allergies codeine Adverse Reaction (Verified 01/04/22 13:33) - Review of Systems ROS: No change since H&P - Vital Signs and I&O's Vital Signs: Temperature 97.3 F Pulse Rate [Left Brachial] 74 Pulse Rate 75 Respiratory Rate 18 Blood Pressure [Right Arm] 132/63 Blood Pressure [Left Arm] 133/61 Blood Pressure 142/65 O2 Sat by Pulse Oximetry 99 Intake and Output: Intake & Output 01/05/22 01/06/22 01/07/22 01/08/22 11:59 11:59 11:59 11:59 Intake Total 3508 / 3508 4013 / 4013 7304 / 7304 Output Total 1099 / 1099 Balance 3508 / 3508 4013 / 4013 6205 / 6205 - Physical Exam Oriented: Normal Eyes: Normal Ear: Normal Nose: Normal Respiratory: Normal Cardiovascular: Normal : Normal Auscultation: Bowel Sounds: Normal Palpation: Normal Tenderness: Diffuse (soft, full abdomen with moderate epigastric and upper abd ominal tendeness .. BS hypoactive ), Mild Skin: Normal Musculoskeletal: Normal Psychiatric: Normal Mood Description: Calm Affect: Angry Speech Pattern: Clear, Appropriate - Laboratory and Diagnostics Result Diagrams: 01/07/22 05:15 01/07/22 05:15 Labs: Laboratory WBC 11.2 X10^3/uL (3.6-10.0) H 01/07/22 05:15 RBC 4.17 X10^6/uL (3.5-5.4) 01/07/22 05:15 Hgb 13.5 g/dL (12.0-16.0) 01/07/22 05:15 Hct 38.5 % (36.0-47.0) 01/07/22 05:15 MCV 92.4 fL (80.0-100.0) 01/07/22 05:15 MCH 32.4 pg (27.0-34.0) 01/07/22 05:15 MCHC 35.1 g/dL (33.0-35.0) H 01/07/22 05:15 RDW 12.4 % (11.6-16.5) 01/07/22 05:15 Plt Count 257 X10^3/uL (150.0-450.0) 01/07/22 05:15 MPV 8.1 fL (7.4-11.0) 01/07/22 05:15 Neut % (Auto) 61.5 % (42.0-75.0) 01/07/22 05:15 Lymph % (Auto) 27.8 % (21.0-51.0) 01/07/22 05:15 [place] % (Auto) 9.4 % (0.0-13.0) 01/07/22 05:15 Eos % (Auto) 0.9 % (0.9-2.9) 01/07/22 05:15 Baso % (Auto) 0.4 % (0.2-1.0) 01/07/22 05:15 Neut # (Auto) 6.9 x10^3/uL (2.2-4.8) H 01/07/22 05:15 Lymph # (Auto) 3.1 X10^3/uL (1.3-2.9) H 01/07/22 05:15 [place] # (Auto) 1.1 x10^3/uL (0.3-0.8) H 01/07/22 05:15 Eos # (Auto) 0.1 x10^3/uL (0.0-0.2) 01/07/22 05:15 Baso # (Auto) 0.0 X10^3/uL (0.0-0.1) 01/07/22 05:15 Absolute Nucleated RBC 0.0 /100WBC 01/07/22 05:15 Sodium 140 mmol/L (136-145) 01/07/22 05:15 Corrected Sodium 140 mmol/L (136-145) 01/07/22 05:15 Potassium 3.1 mmol/L (3.5-5.1) L 01/07/22 05:15 Chloride 103 mmol/L (98-107) 01/07/22 05:15 Carbon Dioxide 29.5 mmol/L (21-32) 01/07/22 05:15 BUN 4 mg/dL (7-18) L 01/07/22 05:15 Creatinine 0.58 mg/dL (0.55-1.02) 01/07/22 05:15 Est GFR (MDRD) Af Amer > 60 (>60) 01/07/22 05:15 Est GFR (MDRD) Non-Af > 60 (>60) 01/07/22 05:15 Glucose 115 mg/dL (65-99) H 01/07/22 05:15 Calcium 7.6 mg/dL (8.5-10.1) L 01/07/22 05:15 Corrected Calcium 8.6 mg/dL (8.5-10.1) 01/07/22 05:15 Magnesium 2.0 mg/dL (1.7-2.9) 01/07/22 05:15 Total Bilirubin 0.60 mg/dL (0.2-1.0) 01/07/22 05:15 AST 25 Units/L (15-37) 01/07/22 05:15 ALT 97 Units/L (12-78) H 01/07/22 05:15 Alkaline Phosphatase 87 Units/L (46-116) 01/07/22 05:15 Total Protein 5.8 g/dL (6.4-8.2) L 01/07/22 05:15 Albumin 2.8 g/dL (3.4-5.0) L 01/07/22 05:15 Globulin 3.0 g/dL (2.5-4.5) 01/07/22 05:15 Albumin/Globulin Ratio 0.9 Ratio (1.1-2.1) L 01/07/22 05:15 Amylase 67 Units/L (25-115) 01/07/22 05:15 Lipase 183 Units/L (73-393) 01/07/22 05:15 SARS-CoV-2 (PCR) Negative (NEGATIVE) 01/04/22 11:18 - Plan (1) Gall stone pancreatitis Status: Acute Plan: D51/2NS AT 100 ML/HR, LOVENOX 40MG SC DAILY, DILAUDID 2MG IV Q4H PRN, MOTRIN 600MG PO TID PRN, ZOFRAN 4MG IV Q4H PRN, PROTONIX 40MG IV DAILY, ZOSYN 3.375G IV TID, AND THE POTASSIUM PROTOCOL. PLANS TO TAKE HER TO THE OR TOMORROW FOR DEBRIDEMENT.
[2022-01-07] MEDS: DIFLUCAN PO SCH (15:11)
[2022-01-07] MEDS: NORCO 5/325 MG TAB PO PRN (19:07)
[2022-01-08] MEDS: DILAUDID INJ IVP PRN (02:26)
[2022-01-08] MEDS: ZOFRAN INJ 4 MG VIAL IVP PRN (02:29)
[2022-01-08] MEDS: D5 1/2 NS 1,000 ML 1,000 ML IV SCH (05:45)
[2022-01-08] MEDS: ZOSYN VIAL 3.375 GRAMS 3.375 G in NS 100 ML IV 100 ML IV SCH (05:46)
[2022-01-08 05:55] LABS: BASOPHILS # (AUTO) 0.2 X10^3/uL (0.0-0.1); BASOPHILS % (AUTO) 1.3 % (0.2-1.0); EOSINOPHILS # (AUTO) 0.2 x10^3/uL (0.0-0.2); EOSINOPHILS % (AUTO) 1.5 % (0.9-2.9); HEMATOCRIT 38.5 % (36.0-47.0); HEMOGLOBIN 13.2 g/dL (12.0-16.0); LYMPHOCYTES # (AUTO) 3.8 X10^3/uL (1.3-2.9); LYMPHOCYTES % (AUTO) 32.1 % (21.0-51.0); MEAN CORPUSCULAR HEMOGLOBIN 31.4 pg (27.0-34.0); MEAN CORPUSCULAR HGB CONC 34.3 g/dL (33.0-35.0); MEAN CORPUSCULAR VOLUME 91.4 fL (80.0-100.0); MEAN PLATELET VOLUME 7.8 fL (7.4-11.0); MONOCYTES # (AUTO) 0.9 x10^3/uL (0.3-0.8); MONOCYTES % (AUTO) 7.6 % (0.0-13.0); NEUTROPHILS # (AUTO) 6.9 x10^3/uL (2.2-4.8); NEUTROPHILS % (AUTO) 57.5 % (42.0-75.0); RED BLOOD COUNT 4.21 X10^6/uL (3.5-5.4); RED CELL DISTRIBUTION WIDTH 12.7 % (11.6-16.5); WHITE BLOOD COUNT 11.9 X10^3/uL (3.6-10.0)
[2022-01-08 06:14] LABS: ALANINE AMINOTRANSFERASE 81 Units/L (12-78); ALBUMIN 2.7 g/dL (3.4-5.0); ALKALINE PHOSPHATASE 80 Units/L (46-116); AMYLASE 39 Units/L (25-115); ASPARTATE AMINO TRANSFERASE 29 Units/L (15-37); BLOOD UREA NITROGEN 3 mg/dL (7-18); CALCIUM 7.6 mg/dL (8.5-10.1); CARBON DIOXIDE 28.3 mmol/L (21-32); CHLORIDE 103 mmol/L (98-107); COR CA(FOR HYPOALB) 8.6 mg/dL (8.5-10.1); CREATININE 0.57 mg/dL (0.55-1.02); LIPASE 116 Units/L (73-393); SODIUM 140 mmol/L (136-145); TOTAL PROTEIN 5.9 g/dL (6.4-8.2); eGFR NON BLACK RACES > 60 (>60)
[2022-01-08] MEDS: NORCO 5/325 MG TAB PO PRN (07:58)
[2022-01-08] MEDS: DIFLUCAN PO SCH (08:02)
[2022-01-08] MEDS: LOVENOX INJ 40 MG SYR SC SCH (08:02)
[2022-01-08] MEDS: PROTONIX INJ 40 MG VIAL IVP SCH (08:03)
[2022-01-08 08:22] VITALS: BP 132/60
--- NOTE | 2022-01-08 13:09 | PCM.PROG ---
Progress Note - Progress Note for Day of Date of Exam: 01/07/22 - Subjective Subjective: IS A 61 YEAR OLD PATIENT OF OURS. SHE WAS ADMITTED INPATIENT STATUS ON 01/04/22 DUE TO EPIGASTRIC PAIN, RUQ PAIN, AND NAUSEA FOR 3-4 WEEKS PRIOR TO ARRIVAL. PAIN WAS WORSE AFTER EATING. GALL BLADDER ULTRASOUND REVEALED CHOLELITHIASIS WITHOUT EVIDENCE OF ACUTE CHOLECYSTITIS. TODAY, SHE IS ALERT AND ORIENTED, LYING IN BED ON MORNING ROUNDS. SHE CONTINUES WITH INTERMITTENT RUQ PAIN. SHE DENIES ANY NAUSEA OR VOMITING. ON EXAMINATION, HEART IS REGULAR IN RATE AND RHYTHM. BILATEARL LUNGS CLEAR TO AUSCULTATION. ABDOMEN IS ROUND, SOFT, NON-TENDER WITH HYPOACTIVE BOWEL SOUNDS NOTED IN ALL QUADRANTS. HER VITALS THIS MORNING ARE: 97.7-74-18-97%-132/63. LABS WERE OBTAINED. WBC 11.2, HGB 13.5, HCT 38.5, SODIUM 140, POTASSIUM 3.1, BUN 4, CREATININE 0.58, GLUCOSE 115, CALCIUM 7.6, AST 25, ALT 97, ALK PHOS 87, TOTAL PROTEIN 5.8, ALBUMIN 2.8. SHE IS CURRENTLY RECEIVING D51/2NS AT 100 ML/HR, LOVENOX 40MG SC DAILY, DILAUDID 2MG IV Q4H PRN, MOTRIN 600MG PO TID PRN, ZOFRAN 4MG IV Q4H PRN, PROTONIX 40MG IV DAILY, ZOSYN 3.375G IV TID, AND THE POTASSIUM PROTOCOL. PLANS TO TAKE HER TO THE OR FOR CHOLECYSTECTOMY THIS MORNING. WE ARE IN AGREEMENT WITH PLANS. OTHERWISE, WE WILL FOLLOW-UP WITH AM LABS AND CONTINUE TO MONITOR. TIME SPENT ON CLINICAL ASSESSMENT, REVIWING LABS AND IMAGING, DECISION MAKING, AND DOCUMENTATION GREATER THAN 45 MINUTES. - Past Medical Family Social History Past Med/Fam/Surg Hx: No changes since H&P Allergies: Allergies codeine Adverse Reaction (Verified 01/04/22 13:33) - Review of Systems ROS: No change since H&P - Vital Signs and I&O's Vital Signs: Temperature 97.8 F Pulse Rate [Left Brachial] 78 Pulse Rate 75 Respiratory Rate 20 Blood Pressure [Right Arm] 132/60 Blood Pressure [Left Arm] 133/61 Blood Pressure 142/65 O2 Sat by Pulse Oximetry 99 Intake and Output: Intake & Output 08/21/22 08/22/22 08/23/22 08/24/22 11:59 11:59 11:59 11:59 Intake Total 4013 / 4013 7304 / 7304 4019 / 4019 Output Total 1099 / 1099 Balance 4013 / 4013 6205 / 6205 401 / 4019 - Physical Exam Oriented: Normal Eyes: Normal Ear: Normal Nose: Normal Respiratory: Normal Cardiovascular: Normal : Normal Auscultation: Bowel Sounds: Normal Palpation: Normal Tenderness: RUQ, Mild Skin: Normal Musculoskeletal: Normal Psychiatric: Normal Mood Description: Calm Affect: Angry Speech Pattern: Clear, Appropriate - Laboratory and Diagnostics Result Diagrams: 01/08/22 05:31 01/08/22 05:31 Labs: Laboratory WBC 11.9 X10^3/uL (3.6-10.0) H 01/08/22 05:31 RBC 4.21 X10^6/uL (3.5-5.4) 01/08/22 05:31 Hgb 13.2 g/dL (12.0-16.0) 01/08/22 05:31 Hct 38.5 % (36.0-47.0) 01/08/22 05:31 MCV 91.4 fL (80.0-100.0) 01/08/22 05:31 MCH 31.4 pg (27.0-34.0) 01/08/22 05:31 MCHC 34.3 g/dL (33.0-35.0) 01/08/22 05:31 RDW 12.7 % (11.6-16.5) 01/08/22 05:31 Plt Count 271 X10^3/uL (150.0-450.0) 01/08/22 05:31 MPV 7.8 fL (7.4-11.0) 01/08/22 05:31 Neut % (Auto) 57.5 % (42.0-75.0) 01/08/22 05:31 Lymph % (Auto) 32.1 % (21.0-51.0) 01/08/22 05:31 [place] % (Auto) 7.6 % (0.0-13.0) 01/08/22 05:31 Eos % (Auto) 1.5 % (0.9-2.9) 01/08/22 05:31 Baso % (Auto) 1.3 % (0.2-1.0) H 01/08/22 05:31 Neut # (Auto) 6.9 x10^3/uL (2.2-4.8) H 01/08/22 05:31 Lymph # (Auto) 3.8 X10^3/uL (1.3-2.9) H 01/08/22 05:31 [place] # (Auto) 0.9 x10^3/uL (0.3-0.8) H 01/08/22 05:31 Eos # (Auto) 0.2 x10^3/uL (0.0-0.2) 01/08/22 05:31 Baso # (Auto) 0.2 X10^3/uL (0.0-0.1) H 01/08/22 05:31 Absolute Nucleated RBC 0.0 /100WBC 01/08/22 05:31 Sodium 140 mmol/L (136-145) 01/08/22 05:31 Corrected Sodium TNP 01/08/22 05:31 Potassium 3.0 mmol/L (3.5-5.1) L 01/08/22 05:31 Chloride 103 mmol/L (98-107) 01/08/22 05:31 Carbon Dioxide 28.3 mmol/L (21-32) 01/08/22 05:31 BUN 3 mg/dL (7-18) L 01/08/22 05:31 Creatinine 0.57 mg/dL (0.55-1.02) 01/08/22 05:31 Est GFR (MDRD) Af Amer > 60 (>60) 01/08/22 05:31 Est GFR (MDRD) Non-Af > 60 (>60) 01/08/22 05:31 Glucose 106 mg/dL (65-99) H 01/08/22 05:31 Calcium 7.6 mg/dL (8.5-10.1) L 01/08/22 05:31 Corrected Calcium 8.6 mg/dL (8.5-10.1) 01/08/22 05:31 Magnesium 2.0 mg/dL (1.7-2.9) 01/07/22 05:15 Total Bilirubin 0.40 mg/dL (0.2-1.0) 01/08/22 05:31 AST 29 Units/L (15-37) 01/08/22 05:31 ALT 81 Units/L (12-78) H 01/08/22 05:31 Alkaline Phosphatase 80 Units/L (46-116) 01/08/22 05:31 Total Protein 5.9 g/dL (6.4-8.2) L 01/08/22 05:31 Albumin 2.7 g/dL (3.4-5.0) L 01/08/22 05:31 Globulin 3.2 g/dL (2.5-4.5) 01/08/22 05:31 Albumin/Globulin Ratio 0.8 Ratio (1.1-2.1) L 01/08/22 05:31 Amylase 39 Units/L (25-115) 01/08/22 05:31 Lipase 116 Units/L (73-393) 01/08/22 05:31 SARS-CoV-2 (PCR) Negative (NEGATIVE) 01/04/22 11:18 Tissue Pathology To follow 01/07/22 10:06 - Plan (1) Gall stone pancreatitis Status: Acute Plan: D51/2NS AT 100 ML/HR, LOVENOX 40MG SC DAILY, DILAUDID 2MG IV Q4H PRN, MOTRIN 600MG PO TID PRN, ZOFRAN 4MG IV Q4H PRN, PROTONIX 40MG IV DAILY, ZOSYN 3.375G IV TID, AND THE POTASSIUM PROTOCOL. PLANS TO TAKE HER TO THE OR THIS MORNING FOR CHOLECYSTECTOMY
== END 2022-01-08 10:45 | disposition home or self-care (01) | DRG 419 ==
LOC: ER 08:50 → MED/SURG 12:25
PROVIDERS: ADMIT Surgery; ATTEND Surgery
DX: R10.13 Epigastric pain; K21.9 Gastro-esophageal reflux disease without esophagitis; K85.10 Biliary acute pancreatitis without necrosis or infection

== ENCOUNTER 2022-01-10 16:03 | Observation (INO) ==
[2022-01-10 17:14] LABS: BASOPHILS # (AUTO) 0.1 X10^3/uL (0.0-0.1); BASOPHILS % (AUTO) 0.3 % (0.2-1.0); EOSINOPHILS # (AUTO) 0.1 x10^3/uL (0.0-0.2); EOSINOPHILS % (AUTO) 0.4 % (0.9-2.9); HEMATOCRIT 44.5 % (36.0-47.0); HEMOGLOBIN 15.9 g/dL (12.0-16.0); LYMPHOCYTES # (AUTO) 1.8 X10^3/uL (1.3-2.9); LYMPHOCYTES % (AUTO) 12.1 % (21.0-51.0); MEAN CORPUSCULAR HEMOGLOBIN 32.2 pg (27.0-34.0); MEAN CORPUSCULAR HGB CONC 35.6 g/dL (33.0-35.0); MEAN CORPUSCULAR VOLUME 90.3 fL (80.0-100.0); MEAN PLATELET VOLUME 7.9 fL (7.4-11.0); MONOCYTES # (AUTO) 0.7 x10^3/uL (0.3-0.8); MONOCYTES % (AUTO) 4.8 % (0.0-13.0); NEUTROPHILS # (AUTO) 12.5 x10^3/uL (2.2-4.8); NEUTROPHILS % (AUTO) 82.4 % (42.0-75.0); RED BLOOD COUNT 4.93 X10^6/uL (3.5-5.4); RED CELL DISTRIBUTION WIDTH 12.6 % (11.6-16.5); WHITE BLOOD COUNT 15.1 X10^3/uL (3.6-10.0)
[2022-01-10] MEDS: D5 1/2 NS 1,000 ML 1,000 ML IV SCH (17:19)
[2022-01-10] MEDS: MORPHINE SULFATE INJ 2 MG INJ IVP PRN ×2 (17:20→21:33)
[2022-01-10] MEDS: ZOFRAN INJ 4 MG VIAL IVP PRN (17:21)
[2022-01-10 17:28] LABS: ALANINE AMINOTRANSFERASE 56 Units/L (12-78); ALBUMIN 3.4 g/dL (3.4-5.0); ALKALINE PHOSPHATASE 108 Units/L (46-116); ASPARTATE AMINO TRANSFERASE 20 Units/L (15-37); BLOOD UREA NITROGEN 9 mg/dL (7-18); CALCIUM 8.5 mg/dL (8.5-10.1); CARBON DIOXIDE 31.5 mmol/L (21-32); CHLORIDE 98 mmol/L (98-107); COR NA(FOR HYPERGLY) 141 mmol/L (136-145); CREATININE 0.71 mg/dL (0.55-1.02); SODIUM 140 mmol/L (136-145); TOTAL PROTEIN 7.3 g/dL (6.4-8.2); eGFR NON BLACK RACES > 60 (>60)
[2022-01-10 17:38] LABS: AMYLASE 35 Units/L (25-115); LIPASE 62 Units/L (73-393)
[2022-01-10] MEDS ORDERED: K-DUR TAB 20 MEQ PO PRN (19:48)
[2022-01-10] MEDS ORDERED: MICRO K EXTEN CAP 10 MEQ PO PRN (19:48)
[2022-01-10] MEDS ORDERED: POTASSIUM CHL 40 MEQ/NS 0.45% 500 ML IV PRN (19:48)
[2022-01-10] MEDS ORDERED: KLOR-CON PO PRN (19:48)
[2022-01-10] MEDS ORDERED: POTASSIUM CHL 60 MEQ/NS 0.45% 500 ML IV PRN (19:48)
[2022-01-10] MEDS ORDERED: POTASSIUM CHLORIDE LIQ 20 MEQ UDC PO PRN (19:48)
[2022-01-10] MEDS: K-RIDER 10 MEQ/NS 100 ML 10 MEQ/100 ML BAG IV PRN ×3 (20:30→22:30)
[2022-01-10] MEDS ORDERED: FLEET ENEMA ADULT PR ONE (22:31)
--- NOTE | 2022-01-10 23:04 | RAD ---
PROCEDURE: Acute Abdomen Series .HISTORY: ileus, recent pancreatitis .TECHNIQUE: AP supine and upright abdomen with AP chest x-ray views .COMPARISON: None .TECHNICAL QUALITY: Satisfactory .FINDINGS:Chest x-ray shows clear lungs and normal size heart.No pneumoperitoneum.Minimal gas and feces in the colon without distention. No obstruction or ileus.No organomegaly.Surgical alicia right upper quadrant may be in the skin.Vascular calcifications in both sides of the pelvis.No bony abnormality.IMPRESSION:1. Nonspecific bowel gas pattern.2. No active cardiopulmonary disease.Electronically signed by: Everton Barnes (Jan 10, 2022 23:02:30)
[2022-01-10] MEDS ORDERED: FLEET ENEMA ADULT ONE (23:05)
[2022-01-10] MEDS ORDERED: LEVAQUIN PREMIX IV 500 MG 500 MG/100 ML BAG IV ONE (23:05)
[2022-01-10] MEDS: LEVAQUIN PREMIX IV 500 MG 500 MG/100 ML BAG IV SCH (23:25)
[2022-01-11] MEDS: D5 1/2 NS 1,000 ML 1,000 ML IV SCH ×6 (01:14→21:20)
[2022-01-11 05:46] LABS: BASOPHILS # (AUTO) 0.1 X10^3/uL (0.0-0.1); BASOPHILS % (AUTO) 0.9 % (0.2-1.0); EOSINOPHILS # (AUTO) 0.1 x10^3/uL (0.0-0.2); EOSINOPHILS % (AUTO) 0.7 % (0.9-2.9); HEMATOCRIT 43.4 % (36.0-47.0); HEMOGLOBIN 15.1 g/dL (12.0-16.0); MEAN CORPUSCULAR HEMOGLOBIN 31.5 pg (27.0-34.0); MEAN CORPUSCULAR HGB CONC 34.7 g/dL (33.0-35.0); MEAN CORPUSCULAR VOLUME 90.7 fL (80.0-100.0); MEAN PLATELET VOLUME 8.5 fL (7.4-11.0); MONOCYTES # (AUTO) 1.3 x10^3/uL (0.3-0.8); MONOCYTES % (AUTO) 8.6 % (0.0-13.0); NEUTROPHILS # (AUTO) 10.5 x10^3/uL (2.2-4.8); NEUTROPHILS % (AUTO) 69.8 % (42.0-75.0); RED BLOOD COUNT 4.78 X10^6/uL (3.5-5.4); RED CELL DISTRIBUTION WIDTH 12.9 % (11.6-16.5); WHITE BLOOD COUNT 15.1 X10^3/uL (3.6-10.0)
[2022-01-11] MEDS: ZOFRAN INJ 4 MG VIAL IVP PRN ×4 (06:08→17:54)
[2022-01-11 06:16] LABS: ALANINE AMINOTRANSFERASE 52 Units/L (12-78); ALBUMIN 3.1 g/dL (3.4-5.0); ALKALINE PHOSPHATASE 99 Units/L (46-116); ASPARTATE AMINO TRANSFERASE 19 Units/L (15-37); BLOOD UREA NITROGEN 9 mg/dL (7-18); CARBON DIOXIDE 31.7 mmol/L (21-32); CHLORIDE 97 mmol/L (98-107); COR CA(FOR HYPOALB) 8.7 mg/dL (8.5-10.1); COR NA(FOR HYPERGLY) 140 mmol/L (136-145); SODIUM 139 mmol/L (136-145); TOTAL PROTEIN 6.7 g/dL (6.4-8.2); eGFR NON BLACK RACES > 60 (>60)
[2022-01-11] MEDS: K-RIDER 10 MEQ/NS 100 ML 10 MEQ/100 ML BAG IV PRN ×5 (06:27→23:31)
[2022-01-11] MEDS: REGLAN INJ 10 MG VIAL IVP PRN ×3 (08:10→20:41)
[2022-01-11] MEDS ORDERED: PHENERGAN INJ 25 MG IM ONE (08:11)
[2022-01-11] MEDS ORDERED: NORCO 5/325 MG TAB PO PRN (08:38)
[2022-01-11] MEDS: ESTRACE PO SCH (09:16)
[2022-01-11] MEDS: PROTONIX INJ 40 MG VIAL IVP SCH ×2 (09:26→20:41)
--- NOTE | 2022-01-11 10:57 | DR.PROGNOT ---
Hospital Progress Notes - Progress Note for Day of: Progress Note Date: 01/11/22 - Chief Complaint Chief Complaint: Pt was admitted with lower abdominal pain, constipation and vomiting bile. for the past two days .. was vomiting last night and her K was low . WBC 15.1 . normal LFT and Amylase , Lipase . - Past Medical Family Social History Past Med/Fam/Surg Hx: No changes since H&P Allergies: Allergies codeine Adverse Reaction (Verified 01/04/22 13:33) - Review Of Systems ROS: No change since H&P - Vital Signs Vital Signs: Temperature 97.9 F Pulse Rate [Left Radial] 79 Respiratory Rate 18 Blood Pressure [Right Arm] 187/84 O2 Sat by Pulse Oximetry 98 - Physical Exam Oriented: Normal Eyes: Normal Ear: Normal Nose: Normal Respiratory: Normal Cardiovascular: Normal : Normal GI:Auscultation: Decreased GI:Palpation: Normal GI: Tenderness: Other (soft, flat abdomen with mild lower abdominal tenderness .. BS hypo active .. ) Speech Pattern: Clear, Appropriate - Laboratory and Diagnostics Result Diagrams: 01/11/22 04:45 01/11/22 04:45 Labs: Laboratory WBC 15.1 X10^3/uL (3.6-10.0) H 01/11/22 04:45 RBC 4.78 X10^6/uL (3.5-5.4) 01/11/22 04:45 Hgb 15.1 g/dL (12.0-16.0) 01/11/22 04:45 Hct 43.4 % (36.0-47.0) 01/11/22 04:45 MCV 90.7 fL (80.0-100.0) 01/11/22 04:45 MCH 31.5 pg (27.0-34.0) 01/11/22 04:45 MCHC 34.7 g/dL (33.0-35.0) 01/11/22 04:45 RDW 12.9 % (11.6-16.5) 01/11/22 04:45 Plt Count 327 X10^3/uL (150.0-450.0) 01/11/22 04:45 MPV 8.5 fL (7.4-11.0) 01/11/22 04:45 Neut % (Auto) 69.8 % (42.0-75.0) 01/11/22 04:45 Lymph % (Auto) 20.0 % (21.0-51.0) L 01/11/22 04:45 [place] % (Auto) 8.6 % (0.0-13.0) 01/11/22 04:45 Eos % (Auto) 0.7 % (0.9-2.9) L 01/11/22 04:45 Baso % (Auto) 0.9 % (0.2-1.0) 01/11/22 04:45 Neut # (Auto) 10.5 x10^3/uL (2.2-4.8) H 01/11/22 04:45 Lymph # (Auto) 3.0 X10^3/uL (1.3-2.9) H 01/11/22 04:45 [place] # (Auto) 1.3 x10^3/uL (0.3-0.8) H 01/11/22 04:45 Eos # (Auto) 0.1 x10^3/uL (0.0-0.2) 01/11/22 04:45 Baso # (Auto) 0.1 X10^3/uL (0.0-0.1) 01/11/22 04:45 Absolute Nucleated RBC 0.0 /100WBC 01/11/22 04:45 Sodium 139 mmol/L (136-145) 01/11/22 04:45 Corrected Sodium 140 mmol/L (136-145) 01/11/22 04:45 Potassium 2.8 mmol/L (3.5-5.1) L* 01/11/22 04:45 Chloride 97 mmol/L (98-107) L 01/11/22 04:45 Carbon Dioxide 31.7 mmol/L (21-32) 01/11/22 04:45 BUN 9 mg/dL (7-18) 01/11/22 04:45 Creatinine 0.70 mg/dL (0.55-1.02) 01/11/22 04:45 Est GFR (MDRD) Af Amer > 60 (>60) 01/11/22 04:45 Est GFR (MDRD) Non-Af > 60 (>60) 01/11/22 04:45 Glucose 139 mg/dL (65-99) H 01/11/22 04:45 Calcium 8.0 mg/dL (8.5-10.1) L 01/11/22 04:45 Corrected Calcium 8.7 mg/dL (8.5-10.1) 01/11/22 04:45 Magnesium 2.5 mg/dL (1.7-2.9) 01/11/22 04:45 Total Bilirubin 0.50 mg/dL (0.2-1.0) 01/11/22 04:45 AST 19 Units/L (15-37) 01/11/22 04:45 ALT 52 Units/L (12-78) 01/11/22 04:45 Alkaline Phosphatase 99 Units/L (46-116) 01/11/22 04:45 Total Protein 6.7 g/dL (6.4-8.2) 01/11/22 04:45 Albumin 3.1 g/dL (3.4-5.0) L 01/11/22 04:45 Globulin 3.6 g/dL (2.5-4.5) 01/11/22 04:45 Albumin/Globulin Ratio 0.9 Ratio (1.1-2.1) L 01/11/22 04:45 Amylase 35 Units/L (25-115) 01/10/22 17:05 Lipase 62 Units/L (73-393) L 01/10/22 17:05 SARS-CoV-2 (PCR) Negative (NEGATIVE) 01/10/22 17:00 Influenza Type A (PCR) Negative (NEGATIVE) 01/10/22 17:00 Influenza Type B (PCR) Negative (NEGATIVE) 01/10/22 17:00 RSV (PCR) Negative (NEGATIVE) 01/10/22 17:00 - Assessment and Plan 2: Ileus with vomiting ,. lower abdominal pain . s/p recent lap [place] .. recent acute panvreatitis .. K supplement , IVF , control the nausea and vomiting .. SSE . clear liquid ..
[2022-01-11] MEDS ORDERED: NEURONTIN CAP 300 MG PO SCH (21:00)
[2022-01-11] MEDS: LEVAQUIN PREMIX IV 500 MG 500 MG/100 ML BAG IV SCH (22:21)
[2022-01-12] MEDS: D5 1/2 NS 1,000 ML 1,000 ML IV SCH ×3 (01:13→08:11)
[2022-01-12] MEDS: K-RIDER 10 MEQ/NS 100 ML 10 MEQ/100 ML BAG IV PRN ×3 (02:34→08:05)
[2022-01-12] MEDS: REGLAN INJ 10 MG VIAL IVP PRN (02:35)
[2022-01-12 05:33] LABS: BASOPHILS # (AUTO) 0.1 X10^3/uL (0.0-0.1); BASOPHILS % (AUTO) 1.2 % (0.2-1.0); EOSINOPHILS # (AUTO) 0.2 x10^3/uL (0.0-0.2); HEMATOCRIT 41.2 % (36.0-47.0); HEMOGLOBIN 14.3 g/dL (12.0-16.0); LYMPHOCYTES # (AUTO) 3.8 X10^3/uL (1.3-2.9); LYMPHOCYTES % (AUTO) 31.4 % (21.0-51.0); MEAN CORPUSCULAR HEMOGLOBIN 31.6 pg (27.0-34.0); MEAN CORPUSCULAR HGB CONC 34.8 g/dL (33.0-35.0); MEAN CORPUSCULAR VOLUME 90.6 fL (80.0-100.0); MEAN PLATELET VOLUME 7.8 fL (7.4-11.0); MONOCYTES % (AUTO) 8.7 % (0.0-13.0); NEUTROPHILS # (AUTO) 6.8 x10^3/uL (2.2-4.8); NEUTROPHILS % (AUTO) 56.7 % (42.0-75.0); RED BLOOD COUNT 4.54 X10^6/uL (3.5-5.4); RED CELL DISTRIBUTION WIDTH 12.5 % (11.6-16.5)
[2022-01-12 05:44] LABS: ALANINE AMINOTRANSFERASE 38 Units/L (12-78); ALBUMIN 2.8 g/dL (3.4-5.0); ALKALINE PHOSPHATASE 80 Units/L (46-116); ASPARTATE AMINO TRANSFERASE 18 Units/L (15-37); BLOOD UREA NITROGEN 5 mg/dL (7-18); CALCIUM 7.5 mg/dL (8.5-10.1); CARBON DIOXIDE 29.8 mmol/L (21-32); CHLORIDE 102 mmol/L (98-107); COR CA(FOR HYPOALB) 8.5 mg/dL (8.5-10.1); COR NA(FOR HYPERGLY) 140 mmol/L (136-145); MAGNESIUM 2.1 mg/dL (1.7-2.9); SODIUM 139 mmol/L (136-145); TOTAL PROTEIN 5.8 g/dL (6.4-8.2); eGFR NON BLACK RACES > 60 (>60)
[2022-01-12] MEDS: ESTRACE PO SCH (08:05)
[2022-01-12] MEDS: PROTONIX INJ 40 MG VIAL IVP SCH (08:05)
--- NOTE | 2022-01-12 09:54 | DR.PROGNOT ---
Hospital Progress Notes - Progress Note for Day of: Progress Note Date: 01/12/22 - Chief Complaint Chief Complaint: feeling much better today .. having several BM .. no abdominal pain . hypokalemia is corrected . WBC 12. afebrile .. - Past Medical Family Social History Past Med/Fam/Surg Hx: No changes since H&P Allergies: Allergies codeine Adverse Reaction (Verified 01/04/22 13:33) - Review Of Systems ROS: No change since H&P - Vital Signs Vital Signs: Temperature 98.2 F Pulse Rate [Left Radial] 74 Respiratory Rate 18 Blood Pressure [Right Arm] 126/59 O2 Sat by Pulse Oximetry 98 - Physical Exam Oriented: Normal Eyes: Normal Ear: Normal Nose: Normal Respiratory: Normal Cardiovascular: Normal : Normal GI:Auscultation: Decreased GI:Palpation: Normal GI: Tenderness: Other (soft, flat abdomen with only mild lower abdominal tenderness .. BS +) Speech Pattern: Clear, Appropriate - Laboratory and Diagnostics Result Diagrams: 01/12/22 05:20 01/12/22 05:20 Labs: Laboratory WBC 12.0 X10^3/uL (3.6-10.0) H 01/12/22 05:20 RBC 4.54 X10^6/uL (3.5-5.4) 01/12/22 05:20 Hgb 14.3 g/dL (12.0-16.0) 01/12/22 05:20 Hct 41.2 % (36.0-47.0) 01/12/22 05:20 MCV 90.6 fL (80.0-100.0) 01/12/22 05:20 MCH 31.6 pg (27.0-34.0) 01/12/22 05:20 MCHC 34.8 g/dL (33.0-35.0) 01/12/22 05:20 RDW 12.5 % (11.6-16.5) 01/12/22 05:20 Plt Count 325 X10^3/uL (150.0-450.0) 01/12/22 05:20 MPV 7.8 fL (7.4-11.0) 01/12/22 05:20 Neut % (Auto) 56.7 % (42.0-75.0) 01/12/22 05:20 Lymph % (Auto) 31.4 % (21.0-51.0) 01/12/22 05:20 [place] % (Auto) 8.7 % (0.0-13.0) 01/12/22 05:20 Eos % (Auto) 2.0 % (0.9-2.9) 01/12/22 05:20 Baso % (Auto) 1.2 % (0.2-1.0) H 01/12/22 05:20 Neut # (Auto) 6.8 x10^3/uL (2.2-4.8) H 01/12/22 05:20 Lymph # (Auto) 3.8 X10^3/uL (1.3-2.9) H 01/12/22 05:20 [place] # (Auto) 1.0 x10^3/uL (0.3-0.8) H 01/12/22 05:20 Eos # (Auto) 0.2 x10^3/uL (0.0-0.2) 01/12/22 05:20 Baso # (Auto) 0.1 X10^3/uL (0.0-0.1) 01/12/22 05:20 Absolute Nucleated RBC 0.0 /100WBC 01/12/22 05:20 Sodium 139 mmol/L (136-145) 01/12/22 05:20 Corrected Sodium 140 mmol/L (136-145) 01/12/22 05:20 Potassium 3.6 mmol/L (3.5-5.1) 01/12/22 05:20 Chloride 102 mmol/L (98-107) 01/12/22 05:20 Carbon Dioxide 29.8 mmol/L (21-32) 01/12/22 05:20 BUN 5 mg/dL (7-18) L 01/12/22 05:20 Creatinine 0.70 mg/dL (0.55-1.02) 01/12/22 05:20 Est GFR (MDRD) Af Amer > 60 (>60) 01/12/22 05:20 Est GFR (MDRD) Non-Af > 60 (>60) 01/12/22 05:20 Glucose 123 mg/dL (65-99) H 01/12/22 05:20 Calcium 7.5 mg/dL (8.5-10.1) L 01/12/22 05:20 Corrected Calcium 8.5 mg/dL (8.5-10.1) 01/12/22 05:20 Magnesium 2.1 mg/dL (1.7-2.9) 01/12/22 05:20 Total Bilirubin 0.40 mg/dL (0.2-1.0) 01/12/22 05:20 AST 18 Units/L (15-37) 01/12/22 05:20 ALT 38 Units/L (12-78) 01/12/22 05:20 Alkaline Phosphatase 80 Units/L (46-116) 01/12/22 05:20 Total Protein 5.8 g/dL (6.4-8.2) L 01/12/22 05:20 Albumin 2.8 g/dL (3.4-5.0) L 01/12/22 05:20 Globulin 3.0 g/dL (2.5-4.5) 01/12/22 05:20 Albumin/Globulin Ratio 0.9 Ratio (1.1-2.1) L 01/12/22 05:20 Amylase 35 Units/L (25-115) 01/10/22 17:05 Lipase 62 Units/L (73-393) L 01/10/22 17:05 SARS-CoV-2 (PCR) Negative (NEGATIVE) 01/10/22 17:00 Influenza Type A (PCR) Negative (NEGATIVE) 01/10/22 17:00 Influenza Type B (PCR) Negative (NEGATIVE) 01/10/22 17:00 RSV (PCR) Negative (NEGATIVE) 01/10/22 17:00 - Assessment and Plan 2: subsiding Ileus with vomiting ,. hypokalemia is corrected .. lower abdominal pain . s/p recent lap [place] .. recent acute panvreatitis .. K supplement , IVF ,. to advance diet to full liquid ..
[2022-01-12 12:24] VITALS: BP 127/62
== END 2022-01-12 13:59 | disposition home or self-care (01) ==
LOC: MED/SURG
PROVIDERS: ADMIT Surgery; ATTEND Surgery
DX: Z20.822 Contact with and (suspected) exposure to COVID-19; R11.2 Nausea with vomiting, unspecified; E87.6 Hypokalemia; E86.0 Dehydration; K56.7 Ileus, unspecified; R10.84 Generalized abdominal pain; K85.90 Acute pancreatitis without necrosis or infection, unspecified